=== PATIENT | male | born 1950 | race Caucasian/White ===

== ENCOUNTER 2020-02-07 08:33 | Outpatient (CLI) | payer MEDICARE, SELFPAY ==
[2020-02-07 09:33] LABS: Alanine Aminotransferase 21 U/L (16-63); Albumin Level 3.8 g/dL (3.4-5.0); Alkaline Phosphatase 74 U/L (46-116); Anion Gap 8 mmol/L (8-16); Aspartate Amino Transferase 21 U/L (15-37); Bilirubin,Total 0.6 mg/dL (0.00-1.00); Blood Urea Nitrogen 16 mg/dL (7-18); Calcium 9.7 mg/dL (8.5-10.1); Carbon Dioxide 29 mmol/L (21-32); Chloride 97 mmol/L (98-108); Cholesterol 159 mg/dL (0-200); Estimated Glomerular Filt Rate > 60; Glucose 173 mg/dL (70-99); HDL Direct 65 mg/dL (40-60); LDL Cholesterol Calculated 80 mg/dL (<130); Osmolality Calculated 283 mOsm/kg (285-295); Potassium 4.5 mmol/L (3.5-5.1); Sodium 134 mmol/L (136-145); Total Protein 7.5 g/dL (6.4-8.2); Triglycerides 70 mg/dL (0-150)
== END 2020-02-07 08:34 | disposition home or self-care (01) ==
LOC: CHSLAB 08:38
PROVIDERS: PCP Internal Medicine
DX: E78.5 Hyperlipidemia, unspecified (principal)
CPT/HCPCS: 36415; 80053; 80061

== ENCOUNTER 2020-02-08 12:49 | Emergency (ER) | payer MEDICARE, SELFPAY ==
[2020-02-08 13:15] VITALS: BP 169/91; PULSE 81; RESP 17; O2SAT 99
--- NOTE | 2020-02-08 13:49 | ED.WOUNDLAC ---
HPI - Wound/Laceration General Chief Complaint: Wound/Laceration Stated Complaint: bleeding mouth Time Seen by Provider: 02/08/20 13:50 Source: patient and family Mode of arrival: ambulatory Limitations: no limitations History of Present Illness HPI narrative: Patient comes in with a wound on his tongue. He reportedly had a biopsy done a few days ago. The wound was sutured. Over the last few days these sutures have come out. Bleeding early was mild, now it has stopped. Place: home Associated symptoms: none Related Data Home Medications Medication Instructions Recorded Confirmed aspirin 81 mg tablet,delayed 81 mg PO DAILY 02/02/20 02/08/20 release carvedilol 25 mg tablet 25 mg PO Q12H 02/02/20 02/08/20 clopidogrel 75 mg tablet 75 mg PO DAILY 02/02/20 02/08/20 fluticasone propionate 50 1 spray INTRANASAL DAILY 02/02/20 02/08/20 mcg/actuation nasal spray,suspension glimepiride 1 mg tablet 1 mg PO QAM 02/02/20 02/08/20 hydrochlorothiazide 12.5 mg capsule 12.5 mg PO DAILY 02/02/20 02/08/20 irbesartan 300 mg tablet 300 mg PO DAILY 02/02/20 02/08/20 metformin 500 mg tablet 500 mg PO BID 02/02/20 02/08/20 montelukast 10 mg tablet 10 mg PO DAILY 02/02/20 02/08/20 pantoprazole 40 mg tablet,delayed 40 mg PO QAM 02/02/20 02/08/20 release atorvastatin 20 mg PO DAILY 02/08/20 02/08/20 Allergies Allergy/AdvReac Type Severity Reaction Status Date / Time No Known Allergies Allergy Verified 02/02/20 11:15 Review of Systems Constitutional: Constitutional: Reports no additional constitutional complaints Eyes: Eyes: Reports no additional eye complaints ENT: Reports system reviewed and no additional complaints, except as documented Cardiovascular: Cardiovascular: Reports no additional cardiovascular complaints Respiratory: Respiratory: Reports no additional respiratory complaints Gastrointestinal: Gastrointestinal: Reports no additional gastrointestinal complaints Genitourinary: Genitourinary: Reports no additional male genitourinary complaints Musculoskeletal: Musculoskeletal: Reports no additional musculoskeletal complaints Integumentary/Breasts: Skin/Breast: Reports system reviewed and no additional complaints, except as docu Neurologic: Reports system reviewed and no additional complaints, except as documented Psychiatric: Psychiatric: Reports no additional psychiatric complaints Endocrine: Endocrine: Reports no additional endocrine complaints Hematologic/Lymphatic: Hematologic/Lymphatic: Reports no additional hematologic/lymphatic complaints Allergic/Immunologic: Allergic/Immunologic: Reports no additional allergic/immunologic complaints [facility] Past Medical History Medical History Carotid artery disease Diabetes Sleep apnea Tongue cancer Family History Family History Sibling Family history of obesity Family history of diabetes mellitus in first degree relative Family history of heart disease in male family member before age 55 Father Hypertension Family history of diabetes mellitus in first degree relative Family history of coronary artery disease Acute myocardial infarction Social History Social History Smoking status: Former smoker Second hand tobacco smoke exposure: No Alcohol intake: current Substance use: never Substance use type: does not use Exam Const: General: no acute distress Orientation/consciousness: patient oriented x3 HENMT: Head: normal to inspection Ears: external ears normal General nose exam: Normal external nose present Face and sinus: normal facial exam Teeth and gingiva: abnormal tooth and associated gingiva Other: Wound has stopped bleeding and appears to be healing Eyes: Conjunctivae: conjunctivae normal Neck: Neck: normal visual inspection and no lymphadenopathy Chest: Chest palpation & i
== END 2020-02-08 14:14 | disposition home or self-care (01) ==
PROVIDERS: Emergency Provider Emergency Medicine; PCP Internal Medicine
DX: L98.9 Disorder of the skin and subcutaneous tissue, unspecified (principal)
CPT/HCPCS: 99282

== ENCOUNTER 2020-03-12 14:10 | Outpatient (CLI) | payer MEDICARE, SELFPAY ==
[2020-03-12 14:58] LABS: Alanine Aminotransferase 16 U/L (16-63); Albumin Level 3.6 g/dL (3.4-5.0); Alkaline Phosphatase 71 U/L (46-116); Anion Gap 9 mmol/L (8-16); Aspartate Amino Transferase 14 U/L (15-37); Bilirubin,Total 0.3 mg/dL (0.00-1.00); Blood Urea Nitrogen 16 mg/dL (7-18); Calcium 9.2 mg/dL (8.5-10.1); Carbon Dioxide 28 mmol/L (21-32); Chloride 102 mmol/L (98-108); Estimated Glomerular Filt Rate > 60; Glucose 151 mg/dL (70-99); Osmolality Calculated 292 mOsm/kg (285-295); Potassium 4.4 mmol/L (3.5-5.1); Sodium 139 mmol/L (136-145)
== END 2020-03-12 14:11 | disposition home or self-care (01) ==
LOC: CHSLAB 14:13
PROVIDERS: PCP Internal Medicine
DX: E78.5 Hyperlipidemia, unspecified (principal)
CPT/HCPCS: 36415; 80053

== ENCOUNTER 2020-04-05 08:06 | Outpatient (CLI) | payer MEDICARE, SELFPAY ==
[2020-04-06 14:41] LABS: SARS-CoV-2 RNA PCR Negative
== END 2020-04-05 08:07 | disposition home or self-care (01) ==
LOC: CHSLAB 08:06
PROVIDERS: PCP Internal Medicine; Visit Provider Family Medicine
DX: Z01.818 Encounter for other preprocedural examination (principal); Z20.822 Contact with and (suspected) exposure to COVID-19
CPT/HCPCS: C9803; U0003; U0005

== ENCOUNTER 2020-05-08 08:25 | Outpatient (CLI) | payer MEDICARE, SELFPAY ==
[2020-05-08 09:23] LABS: Cholesterol 110 mg/dL (0-200); HDL Direct 57 mg/dL (40-60); LDL Cholesterol Calculated 38 mg/dL (<130); Triglycerides 75 mg/dL (0-150)
== END 2020-05-08 08:26 | disposition home or self-care (01) ==
LOC: CHSLAB 08:28
PROVIDERS: PCP Internal Medicine
DX: E78.5 Hyperlipidemia, unspecified (principal)
CPT/HCPCS: 36415; 80061

== ENCOUNTER 2020-08-17 15:38 | Outpatient (CLI) | payer MEDICARE, SELFPAY ==
--- NOTE | ~2020-08-17 | XR_ITS ---
XR thoracic spine 2V 08/17/2020 16:04 Indication: Chronic back pain Procedure: 3 views thoracic spine Comparison: No prior studies for comparison. Findings: There is median sternotomy wires limiting evaluation of the thoracic spine on the AP view. There is mild multilevel thoracic spondylosis. Osteopenia. No acute fracture or traumatic malalignmen t. No paraspinal soft tissue abnormality. Surrounding osseous structures are unremarkable. There is a therosclerosis of the aorta. Impression: 1: Mild thoracic spondylosis. Reviewed, dictated and finalized at location A. Impression: 1: Mild thoracic spondylosis.
--- NOTE | ~2020-08-17 | XR_ITS ---
XR lumbar spine 2-3V 08/17/2020 16:04 Indication: Chronic low back pain Procedure: 3 views lumbar spine Comparison: No prior studies for comparison. Findings: There is mild disc narrowing at all lumbar levels. There is mild-moderate lower lumbar face t hypertrophy. No fracture, subluxation or dislocation. No evidence for spondylolisthesis. There is d iffuse atherosclerosis of the aorta. No acute fracture or traumatic malalignment. Impression: 1: Mild-moderate lumbar spondylosis. Reviewed, dictated and finalized at location A. Impression: 1: Mild-moderate lumbar spondylosis.
== END 2020-08-17 15:39 | disposition home or self-care (01) ==
LOC: CHSIMG 15:41
PROVIDERS: PCP Internal Medicine; Visit Provider Internal Medicine
DX: E11.9 Type 2 diabetes mellitus without complications (principal); M54.9 Dorsalgia, unspecified
CPT/HCPCS: 72070; 72100

== ENCOUNTER 2020-08-19 08:11 | Outpatient (CLI) | payer MEDICARE, SELFPAY ==
--- NOTE | ~2020-08-19 | US_ITS ---
EXAMINATION: US aorta EXAM DATE: 08/19/2020 08:29 INDICATION: Atherosclerosis of aorta. TECHNIQUE: Multiple grayscale and Doppler images of the aorta were obtained (by a technologist who pe rformed the scan) and subsequently reviewed. There is no prior study for comparison. FINDINGS: Aorta measures up to 2.4 cm proximally, 2.0 cm mid aspect, 1.8 cm distally. Right and left iliac idalia shari measure 9 and 8 mm respectively. There is scattered arterial sclerosis, but no appreciable steno sis. IMPRESSION: 1. Scattered abdominal aortic arteriosclerosis without aneurysm. Reviewed, dictated and finalized at location B.
== END 2020-08-19 08:12 | disposition home or self-care (01) ==
LOC: CHSIMG 08:13
PROVIDERS: PCP Internal Medicine; Visit Provider Internal Medicine
DX: I70.0 Atherosclerosis of aorta (principal)
CPT/HCPCS: 76775

== ENCOUNTER 2020-09-07 10:17 | Outpatient (CLI) | payer MEDICARE, SELFPAY ==
--- NOTE | ~2020-09-07 | XR_ITS ---
EXAMINATION: XR shoulder LT min 2V INDICATION: Left shoulder pain TECHNIQUE: Four views of the left shoulder are submitted. COMPARISON: None FINDINGS: Normal alignment. No fracture. There is mild osteoarthritis of the glenohumeral and acromio clavicular joints. Soft tissues are unremarkable. Median sternotomy wires and mediastinal surgical cl ips are seen, likely from prior coronary artery bypass grafting. IMPRESSION: 1. Mild osteoarthritis without acute findings. Reviewed, dictated and finalized at location A.
--- NOTE | ~2020-09-07 | XR_ITS ---
EXAMINATION:XR_CERV2-3V_CR DATE: 09/07/2020 11:18 INDICATION: Neck pain TECHNIQUE: AP, lateral, lateral swimmers and odontoid views of the cervical spine are provided. COMPARISON: 07/08/2014 FINDINGS: There are 2 mm of anterolisthesis of C3 on C4. The odontoid is intact. No fracture is ident ified. There is mild loss of intervertebral disc space height at C5-6 and C6-7. Moderate to severe fa cet and uncovertebral joint osteoarthritis is noted at multiple levels. There are surgical clips in t he right neck. Prevertebral soft tissues are normal. Median sternotomy wires and mediastinal surgical clips are seen, likely from prior coronary artery bypass grafting. IMPRESSION: 1. Mild cervical spondylosis without acute findings or significant interval change. Reviewed, dictated and finalized at location A. IMPRESSION: 1. Mild cervical spondylosis without acute findings or significant interval violeta nge.
== END 2020-09-07 10:18 | disposition home or self-care (01) ==
LOC: CHSIMG 10:20
PROVIDERS: PCP Internal Medicine; Visit Provider Internal Medicine
DX: M54.2 Cervicalgia (principal); M25.512 Pain in left shoulder
CPT/HCPCS: 72040; 73030

== ENCOUNTER 2020-09-13 13:59 | Outpatient (RCR) | payer MEDICARE, SELFPAY ==
--- NOTE | 2020-09-13 14:42 | PTOPEVAL ---
Thank you for referring Nahum Saenz to [facility].? The patient is scheduled to be seen for therapy? ___2_x/week for 12 visits. Please review, sign, date and return this plan of care LUCINA. I agree with and certify that the following plan of care is medically necessary. Referring Physician Date Admitting Provider: Attending Provider: Jareth Retana MD Referring Provider: *PT Outpatient Evaluation Start: 09/13/20 14:03 Freq: Status: Active Protocol: Document 09/13/20 14:03 [place] (Rec: 09/13/20 14:41 [place] [id number]) Therapy Assessment Status Assessment Status Assessment Status Evaluation Outpatient Past Medical History Cardiovascular History Hx Chest Pain Yes Hx Coronary Artery Bypass Graft Yes Hx Coronary Artery Disease Yes Hx Hypercholesterolemia Yes Hx Hypertension Yes Gastrointestinal History Hx Gastroesophageal Reflux Disease Yes Endocrine History Hx Diabetes Yes HEENT History Hx Cataracts Yes Evaluation Information Problem Diagnosis neck pain Onset 03/16/20 Subjective Information Pt. reports on/off neck pain Query Text:As Reported By Patient/ developed about 6 months ago. Family He states that the pain has worsened over the past 2 weeks . He describes pain down the neck and into the left upper trap and into the upper left arm. He states that pain is worsened with lifting and sleeping flat can increase pain. He reports he has been sleeping in a recliner chair due to pain. Pt. reports that he is taking a steroid pack and advil which has helped to ease his pain. He states that he did xray that revealed OA in the neck. He reports that his goal for therapy is to decrease his pain to sleep and return to going fishing. Prior Level of Function Activity Level (Last 3 Months) Occupation retired Hand Dominance Right Activity of Daily Living Ability Independent Indoor/Home Mobility Independent Community Mobility Independent Stairs Ability Independent Functional Cognition (Planning, Shopping Independent , Taking Medications) Cooking Yes Cleaning
--- NOTE | 2020-10-19 17:30 | PTOPEVAL ---
Thank you for referring Nahum Saenz to [facility].? The patient is scheduled to be seen for therapy? ____x/week for ___ weeks. Please review, sign, date and return this plan of care LUCINA. I agree with and certify that the following plan of care is medically necessary. Referring Physician Date Admitting Provider: Attending Provider: Jareth Retana MD Referring Provider: *PT Outpatient Evaluation Start: 09/13/20 14:03 Freq: Status: Active Protocol: Document 10/19/20 14:49 ACR (Rec: 10/19/20 15:30 ACR [id number]) Therapy Assessment Status Assessment Status Assessment Status Progress Outpatient Past Medical History Cardiovascular History Hx Chest Pain Yes Hx Coronary Artery Bypass Graft Yes Hx Coronary Artery Disease Yes Hx Hypercholesterolemia Yes Hx Hypertension Yes Gastrointestinal History Hx Gastroesophageal Reflux Disease Yes Endocrine History Hx Diabetes Yes HEENT History Hx Cataracts Yes Evaluation Information Problem Diagnosis neck pain Onset 03/16/20 Subjective Information Patient reports that since Query Text:As Reported By Patient/ beginning therapy his pain has Family improved significantly, but he has some stiffness that still occurs, especially in the morning. Pain Assessment Timing of Pain Assessment Timing of Pain Assessment Assessment Pain Scale Pain Scale Used Numeric (1 - 10) Self Report Pain Assessment Neck Reported Pain Level 0 Greatest Pain Intensity 1 Pain Score Pain Score 0: Self Report Cervical and Lumbar ROM Cervical ROM Cervical Flexion (0-60) 51 Query Text:Active in Degrees Cervical Extension (0-70) 42 Query Text:Active in Degrees Cervical Rotation Right (0-90) 65 Query Text:Active in Degrees Cervical Rotation Left (0-90) 53 Query Text:Active in Degrees Upper Extremity Range of Motion Scapular/ Shoulder Range of Motion Right Shoulder Flexion - Active 121 Left Shoulder Flexion - Active 148 Upper Extremity Muscle Strength Testing Scapular/Shoulder Right Shoulder Flexion Strength 4 Good Shoulder Abduction Strength 3+ Fair + Shoulder Medial Rotation Strength 5 Normal Shoulder Lateral Rotation Strength 4 Good Left Shoulder Flexion Strength 5 Normal Shoulder Abduction Strength 4 Good Shoulder Medial Rotation Strength 5 Normal Shoulder Lateral Rotation Strength 4 Good Elbow/Forearm Bilateral Elbow Flexion Strength 5 Normal Elbow Extension Strength 4+ Good + Muscle Length Testing
--- NOTE | 2020-10-26 16:16 | PTOPEVAL ---
Thank you for referring Nahum Saenz to [facility].? The patient is scheduled to be seen for therapy? ____x/week for ___ weeks. Please review, sign, date and return this plan of care LUCINA. I agree with and certify that the following plan of care is medically necessary. Referring Physician Date Admitting Provider: Attending Provider: Jareth Retana MD Referring Provider: *PT Outpatient Evaluation Start: 09/13/20 14:03 Freq: Status: Active Protocol: Document 10/26/20 16:05 [facility] (Rec: 10/26/20 16:15 [facility] [id number]) Therapy Assessment Status Assessment Status Assessment Status Discharge Outpatient Past Medical History Cardiovascular History Hx Chest Pain Yes Hx Coronary Artery Bypass Graft Yes Hx Coronary Artery Disease Yes Hx Hypercholesterolemia Yes Hx Hypertension Yes Gastrointestinal History Hx Gastroesophageal Reflux Disease Yes Endocrine History Hx Diabetes Yes HEENT History Hx Cataracts Yes Evaluation Information Problem Diagnosis neck pain Onset 03/16/20 Subjective Information Patient reports that since Query Text:As Reported By Patient/ beginning therapy his pain has Family improved significantly. he reports he is feeling great this date. he reports no pain in the neck. Pain Assessment Timing of Pain Assessment Timing of Pain Assessment Assessment Self Report Self Report Pain Level 0 Pain Score Pain Score 0: Self Report Cervical and Lumbar ROM Cervical ROM Cervical Flexion (0-60) 52 Query Text:Active in Degrees Cervical Extension (0-70) 35 Query Text:Active in Degrees Cervical Rotation Right (0-90) 65 Query Text:Active in Degrees Cervical Rotation Left (0-90) 65 Query Text:Active in Degrees Cervical and Lumbar Muscle Testing Cervical Muscle Testing Deep Cervical Flexion 4+/5 deep neck flexor strength Upper Extremity Muscle Strength Testing Scapular/Shoulder Right Shoulder Flexion Strength 4+ Good + Shoulder Abduction Strength 4 Good Shoulder Medial Rotation Strength 5 Normal Shoulder Lateral Rotation Strength 4 Good Left Shoulder Flexion Strength 5 Normal Shoulder Abduction Strength 4 Good Shoulder Medial Rotation Strength 5 Normal Shoulder Lateral Rotation Strength 4 Good General Exercise General Exercises Exercise Description -UBE 10 minutes level 3 (5 fwd Query Text:Record Sets, Reps, and 5 rev) Resistance, and Position -tband blue row, high row, ext , er x30 each bilat -3lb flex and
== END 2020-10-26 16:29 | disposition home or self-care (01) ==
LOC: CHSPT 13:59
PROVIDERS: PCP Internal Medicine; Visit Provider Internal Medicine
DX: M54.2 Cervicalgia (principal)
CPT/HCPCS: 97014; 97110; 97140; 97161; G0283

== ENCOUNTER 2021-05-18 01:10 | Day surgery (SDC) | payer MEDICARE, SELFPAY ==
[2021-05-16 10:55] VITALS: BMI 32.2
[2021-05-18 09:08] VITALS: BP 147/62; PULSE 77; RESP 20; TEMP 36.3; O2SAT 98
[2021-05-18 09:21] LABS: Glucose Point of Care 192 mg/dl (65-105)
--- NOTE | 2021-05-18 09:22 | WPDANESEPPF ---
Anes - Initial Pre Proc Eval Procedure: Operation Date: 05/18/21 10:00 Proposed Procedures p Esophagogastroduodenoscopy & Colonoscopy - Kofi Tyler MD Date/Time: 05/18/21 09:22 Surgeon: Kofi Tyler MD Pre Op Diagnosis: JAREN Patient Data Age: 71 Gender: M Height: 1.78 m Weight: 101.3 kg Last Vital Signs Temp 36.3 C L 05/18/21 09:08 Pulse 77 05/18/21 09:08 Resp 20 05/18/21 09:08 BP 147/62 H 05/18/21 09:08 Pulse Ox 98 05/18/21 09:08 Allergies Allergy/AdvReac Type Severity Reaction Status Date / Time quinapril [From Accupril] Allergy Rash Verified 05/18/21 09:04 Home Medications Medication Instructions Recorded Confirmed Type aspirin 81 mg tablet,delayed 81 mg PO DAILY 02/02/20 05/16/21 History release carvedilol 25 mg tablet 25 mg PO Q12H 02/02/20 05/18/21 History fluticasone propionate 50 1 spray INTRANASAL HS 02/02/20 05/16/21 History mcg/actuation nasal spray,suspension glimepiride 1 mg tablet 1 mg PO BID 02/02/20 05/16/21 History hydrochlorothiazide 12.5 mg capsule 25 mg PO DAILY 02/02/20 05/16/21 History irbesartan 300 mg tablet 300 mg PO DAILY 02/02/20 05/16/21 History metformin 500 mg tablet 1,000 mg PO BID 02/02/20 05/16/21 History montelukast 10 mg tablet 10 mg PO DAILY 02/02/20 05/16/21 History pantoprazole 40 mg tablet,delayed 40 mg PO QAM 02/02/20 05/16/21 History release atorvastatin 20 mg PO DAILY 02/08/20 05/16/21 History potassium chloride 20 meq PO DAILY 05/16/21 05/16/21 History sertraline 100 mg PO DAILY 05/16/21 05/16/21 History Laboratory Tests 05/18/21 09:16 POC Capillary Glucose 192 mg/dl H mg/dl (65-105) Patient hx anesthesia problems: none Family hx anesthesia problems: none Results Review: All pre-operative results and documents have been reviewed as part of the pre-operative evaluation. [facility] Past Medical History Medical History Carotid artery disease Diabetes Sleep apnea Tongue cancer Family History Family History Sibling Family history of obesity Family history of diabetes mellitus in first degree relative Family history of heart disease in male family member before age 55 Father Hypertension Family history of diabetes mellitus in first degree relative Family history of coronary artery disease Acute myocardial infarction Social History Social History Smoking status: Former smoker Tobacco type: cigarettes Second hand tobacco smoke exposure: No Alcohol intake: current Drinks per week: 7 Substance use: never Substance use type: does not use Living arrangements: with family Spiritual care concerns: No Anes - Eval Final PreProcedure Day of Procedure 05/18/21 09:22 Patient weight: obese Heart: regular rate and rhythm Lungs: decreased breath sounds Airway: Mallampati scale class III Neurological: alert and oriented Last oral intake: >/= 8 hours ASA classification: IV Emergent: no Anesthetic plan: proceed Anesthesia type and monitoring: general GIVS and standard monitoring Results Review: All pre-operative results and documents have been reviewed as part of the pre-operative evaluation. Informed Consent: The patient's anesthetic plan and its attendant risks and benefits were discussed with the patient/family/POA. Questions were solicited and answers provided to the satisfaction of the patient/family/POA.
[2021-05-18] MEDS: LACTATED RINGERS 1,000 ML 150 ML IV CONT (09:24)
--- NOTE | 2021-05-18 09:46 | PM.HPGS ---
History of Present Illness History of Present Illness Consent: Risks, benefits, and alternatives have been discussed and questions answered. Patient agrees to proceed with procedure. Chief complaint: JAREN Narrative: aNhum Saenz is a 71 year old male mild mild JAREN, hb 11.6. Denies overt gib, never had EGD. Last colonoscopy 2012. Using baby aspirin. Review of Systems Constitutional: Constitutional: Denies headache(s) and Denies weakness Eyes: Eyes: Denies blurry vision ENT: Reports Normal hearing present, Denies headache(s) and Denies neck pain Cardiovascular: Cardiovascular: Denies chest pain and Denies dyspnea Respiratory: Respiratory: Denies dyspnea Gastrointestinal: Gastrointestinal: Reports no additional gastrointestinal complaints Genitourinary: Genitourinary: Denies dysuria Musculoskeletal: Musculoskeletal: Denies neck pain Integumentary/Breasts: Skin/Breast: Denies dry skin Neurologic: Reports Normal hearing present, Denies headache(s) and Denies weakness Psychiatric: Psychiatric: Denies anxiety Endocrine: Endocrine: Denies change in body appearance Hematologic/Lymphatic: Hematologic/Lymphatic: Denies easy bleeding Allergic/Immunologic: Allergic/Immunologic: Denies urticaria PMFSH Past Medical History Medical History (Updated 05/18/21 @ 09:47 by Kofi Tyler MD) Carotid artery disease Diabetes Iron deficiency anemia Sleep apnea Tongue cancer Family History Family History Sibling Family history of obesity Family history of diabetes mellitus in first degree relative Family history of heart disease in male family member before age 55 Father Hypertension Family history of diabetes mellitus in first degree relative Family history of coronary artery disease Acute myocardial infarction Social History Social History Smoking status: Former smoker Tobacco type: cigarettes Second hand tobacco smoke exposure: No Alcohol intake: current Drinks per week: 7 Substance use: never Substance use type: does not use Living arrangements: with family Spiritual care concerns: No Meds Home Medications and Allergies Home Medications Medication Instructions Recorded Confirmed Type aspirin 81 mg tablet,delayed 81 mg PO DAILY 02/02/20 05/16/21 History release carvedilol 25 mg tablet 25 mg PO Q12H 02/02/20 05/18/21 History fluticasone propionate 50 1 spray INTRANASAL HS 02/02/20 05/16/21 History mcg/actuation nasal spray,suspension glimepiride 1 mg tablet 1 mg PO BID 02/02/20 05/16/21 History hydrochlorothiazide 12.5 mg capsule 25 mg PO DAILY 02/02/20 05/16/21 History irbesartan 300 mg tablet 300 mg PO DAILY 02/02/20 05/16/21 History metformin 500 mg tablet 1,000 mg PO BID 02/02/20 05/16/21 History montelukast 10 mg tablet 10 mg PO DAILY 02/02/20 05/16/21 History pantoprazole 40 mg tablet,delayed 40 mg PO QAM 02/02/20 05/16/21 History release atorvastatin 20 mg PO DAILY 02/08/20 05/16/21 History potassium chloride 20 meq PO DAILY 05/16/21 05/16/21 History sertraline 100 mg PO DAILY 05/16/21 05/16/21 History Allergies Allergy/AdvReac Type Severity Reaction Status Date / Time quinapril [From Accupril] Allergy Rash Verified 05/18/21 09:04 Vital Signs Vital Signs - 24 hr 05/18/21 09:08 Temperature 97.3 F L Pulse Rate 77 Respiratory Rate 20 Blood Pressure 147/62 H Pulse Oximetry 98 Exam Const: General: comfortable and no acute distress HENMT: General nose exam: Normal nares present Eyes: General: appearance normal, both eyes and all related structures Neck: Neck: no JVD Resp: Auscultation: clear to auscultation bilaterally Cardio: Rate: regular rate Rhythm: regular rhythm GI: Inspection: non-distended GI Palp: Yes Soft to palpation Skin: General skin exam: normal color Neuro: General: gait normal Speech:
--- NOTE | 2021-05-18 10:42 | SUR.OPER ---
EGD started at 0954 and ended at 0958. Colonoscopy started at 1003 and ended at 1039.
[2021-05-18 10:44] VITALS: BP 155/58; PULSE 68; RESP 24; O2SAT 100
[2021-05-18 10:54] VITALS: BP 139/52; PULSE 72; RESP 17; O2SAT 98
[2021-05-18 11:04] VITALS: BP 157/68; PULSE 74; RESP 19; O2SAT 98
== END 2021-05-18 11:20 | disposition home or self-care (01) ==
PROVIDERS: PCP Internal Medicine; Visit Provider Internal Medicine Gastroenterology
PROC: 0DJ08ZZ Inspection of Upper Intestinal Tract, Via Natural or Artificial Opening Endoscopic (ICD-10-PCS; CPT 43235; principal; 2021-05-18 10:00)
DX: D50.9 Iron deficiency anemia, unspecified (principal); D12.2 Benign neoplasm of ascending colon; D12.0 Benign neoplasm of cecum; K63.5 Polyp of colon; K29.70 Gastritis, unspecified, without bleeding; K57.30 Diverticulosis of large intestine without perforation or abscess without bleeding; I77.9 Disorder of arteries and arterioles, unspecified; E11.9 Type 2 diabetes mellitus without complications; G47.30 Sleep apnea, unspecified; Z85.810 Personal history of malignant neoplasm of tongue; Z87.891 Personal history of nicotine dependence
CPT/HCPCS: 45385; 45381; 43239; 82948; 88305; J2704; J7120

== ENCOUNTER 2021-12-30 14:26 | Outpatient (CLI) | payer MEDICARE, SELFPAY ==
--- NOTE | 2021-12-30 15:18 | ECHO_ITS ---
Patient Info Name: Nahum Saenz Age: 71 years : 1950 Gender: Male Ht: 70 in Wt: 230 lbs BSA: 2.30 m2 HR: 65 bpm BP: 178 / 78 mmHg Technical Quality: Fair Exam Date: 12/30/2021 3:29 PM Exam Location: [facility] Patient Status: Outpatient Admit Date: 12/30/2021 Staff Ordering Physician: Shane Brito Associate Dean Of Women: Pranav Resendiz RDCS, RT Attending Provider: Shane Brito Referring Physician: Alisha FREEMNA; Exam Type: CA echo doppler color flow Study Info Indications R55 - Syncope and collapse Complete two-dimensional, color flow and Doppler transthoracic echocardiogram is performed. Strain analysis performed. Summary 1. Complete two-dimensional, color flow and Doppler transthoracic echocardiogram is performed. 2. Left ventricular chamber dimension is mildly enlarged. 3. Left ventricular systolic function is normal, estimated at 60-65%. 4. There is mildly increased left ventricular wall thickness. 5. The left ventricular diastolic function is normal. 6. E/e' 8 is minimally elevated. 7. Global longitudinal strain is abnormal at -13.1%. 8. There is mild aortic valve sclerosis. 9. There is trace tricuspid valve regurgitation. Left Ventricle E/e' 8 is minimally elevated. Global longitudinal strain is abnormal at -13.1%. Left ventricular chamber dimension is mildly enlarged. Left ventricular systolic function is normal, estimated at 60-65%. There is mildly increased left ventricular wall thickness. The left ventricular diastolic function is normal. Right Ventricle Right ventricular systolic function is normal and with normal TAPSE 2.1 cm. Right ventricular chamber dimension is normal. Left Atria Left atrial chamber dimension is normal. Right Atria Right atrial chamber dimension is normal. Aortic Valve The aortic valve is trileaflet. There is mild aortic valve sclerosis. There is no aortic valve stenosis. There is no aortic valve regurgitation. Pulmonic Valve There is no pulmonic regurgitation. Mitral Valve There is no mitral valve stenosis. There is no mitral valve regurgitation. Tricuspid Valve RVSP is not calculated due to an inadequate TR jet. There is trace tricuspid valve regurgitation. Pericardium/Pleural There is no pericardial effusion. Inferior Vena Cava Normal inferior vena cava with >50% collapse upon inspiration consistent with normal right atrial pressure, 5 mmHg. Aorta The aortic root size at the sinus of Valsalva is normal. Left Ventricular Outflow Tract Name Value Normal LVOT 2D LVOT Diameter 2.0 cm LVOT Doppler LVOT Peak Velocity 78 cm/s LVOT Peak Gradient 1 mmHg LVOT Mean Gradient 1 mmHg LVOT VTI 17 cm LVOT VTI/AV VTI Ratio 0.6 LVOT Stroke Volume 51 ml Mitral Valve Name Value Normal
== END 2021-12-30 14:27 | disposition home or self-care (01) ==
LOC: CHSIMG 14:28
PROVIDERS: PCP Internal Medicine
DX: R55 Syncope and collapse (principal)
CPT/HCPCS: 93306

== ENCOUNTER 2022-08-23 01:02 | Day surgery (SDC) | payer MEDICARE, SELFPAY ==
[2022-07-27 09:20] VITALS: BMI 30.2
[2022-08-09 13:46] VITALS: BMI 30.4
--- NOTE | 2022-08-09 13:53 | PC.NURSE ---
Spoke with spouse, health history and medications are unchanged since interview on 07/27/2022
[2022-08-23 07:46] VITALS: BP 194/75; PULSE 80; RESP 18; TEMP 36.1; O2SAT 99
[2022-08-23] MEDS: LACTATED RINGERS 1,000 ML 150 ML IV CONT (07:56)
[2022-08-23 07:57] LABS: Glucose Point of Care 134 mg/dl (65-105)
--- NOTE | 2022-08-23 08:24 | WPDANESEPPF ---
Anes - Initial Pre Proc Eval Procedure: Operation Date: 08/23/22 09:00 Proposed Procedures p Colonoscopy - Kofi Tyler MD Date/Time: 08/23/22 08:24 Surgeon: Kofi Tyler MD Pre Op Diagnosis: hx of colon polyps Patient Data Age: 72 Gender: M Height: 1.75 m Weight: 90.5 kg Last Vital Signs Temp 97 F L 08/23/22 07:46 Pulse 80 08/23/22 07:46 Resp 18 08/23/22 07:46 BP 194/75 H 08/23/22 07:46 Pulse Ox 99 08/23/22 07:46 O2 Del Method Room Air 08/23/22 07:46 Allergies Allergy/AdvReac Type Severity Reaction Status Date / Time quinapril [From Accupril] Allergy Rash Verified 08/23/22 07:45 Home Medications Medication Instructions Recorded Confirmed Type aspirin 81 mg tablet,delayed 81 mg PO DAILY 02/02/20 07/27/22 History release (Adult Aspirin Regimen) carvedilol 25 mg tablet 25 mg PO Q12H 02/02/20 07/27/22 History fluticasone propionate 50 1 spray intranasal HS 02/02/20 07/27/22 History mcg/actuation nasal spray,suspension (Flonase Allergy Relief) glimepiride 1 mg tablet 1 mg PO BID 02/02/20 07/27/22 History hydrochlorothiazide 12.5 mg capsule 25 mg PO DAILY 02/02/20 07/27/22 History irbesartan 300 mg tablet 300 mg PO DAILY 02/02/20 07/27/22 History metformin 500 mg tablet 1,000 mg PO BID 02/02/20 07/27/22 History montelukast 10 mg tablet 10 mg PO DAILY 02/02/20 07/27/22 History pantoprazole 40 mg tablet,delayed 40 mg PO QAM 02/02/20 07/27/22 History release atorvastatin 20 mg tablet 20 mg PO DAILY 02/08/20 07/27/22 History potassium chloride 20 mEq 20 meq PO DAILY 05/16/21 07/27/22 History tablet,extended release(part/cryst) sertraline 100 mg tablet 100 mg PO DAILY 05/16/21 07/27/22 History ferrous gluconate 324 mg (38 mg 324 mg PO BID 07/27/22 07/27/22 History iron) tablet Laboratory Tests 08/23/22 07:54 POC Capillary Glucose 134 H mg/dl (65-105) Patient hx anesthesia problems: none Family hx anesthesia problems: none Results Review: All pre-operative results and documents have been reviewed as part of the pre-operative evaluation. [facility] Past Medical History Medical History (Updated 05/18/21 @ 09:47 by Kofi Tyler MD) Carotid artery disease Diabetes Iron deficiency anemia Sleep apnea Tongue cancer Family History Family History Sibling Family history of obesity Family history of diabetes mellitus in first degree relative Family history of heart disease in male family member before age 55 Father Hypertension Family history of diabetes mellitus in first degree relative Family history of coronary artery disease Acute myocardial infarction Social History Social History Smoking packs per day: 1.5 Smoking cigarettes per day: 30.0 Smoking status: Former smoker Tobacco type: cigarettes Second hand tobacco smoke exposure: No Alcohol intake: current Drinks per week: 3 Substance use: never Substance use type: does not use Living arrangements: with family Spiritual care concerns: No Anes - Eval Final PreProcedure Day of Procedure 08/23/22 08:24 Patient weight: normal Heart: regular rate and rhythm Lungs: clear to auscultation Airway: Mallampati scale class II Neurological: alert and oriented Last oral intake: >/= 8 hours ASA classification: III Emergent: no Anesthetic plan: proceed Anesthesia type and monitoring: general GIVS and standard monitoring Results Review: All pre-operative results and documents have been reviewed as part of the pre-operative evaluation. Informed Consent: The patient's anesthetic plan and its attendant risks and benefits were discussed with the patient/family/POA. Questions were solicited and answers provided to the satisfaction of the patient/family/POA.
--- NOTE | 2022-08-23 08:39 | PM.HPGS ---
History of Present Illness History of Present Illness Consent: Risks, benefits, and alternatives have been discussed and questions answered. Patient agrees to proceed with procedure. Chief complaint: hx of colon polyps Narrative: Nahum Saenz is a 72 year old male with large TA polyp removed 05/2021 Review of Systems Constitutional: Constitutional: Denies headache(s) and Denies weakness Eyes: Eyes: Denies blurry vision ENT: Reports Normal hearing present, Denies headache(s) and Denies neck pain Cardiovascular: Cardiovascular: Denies chest pain and Denies dyspnea Respiratory: Respiratory: Denies dyspnea Gastrointestinal: Gastrointestinal: Reports no additional gastrointestinal complaints Genitourinary: Genitourinary: Denies dysuria Musculoskeletal: Musculoskeletal: Denies neck pain Integumentary/Breasts: Skin/Breast: Denies dry skin Neurologic: Reports Normal hearing present, Denies headache(s) and Denies weakness Psychiatric: Psychiatric: Denies anxiety Endocrine: Endocrine: Denies change in body appearance Hematologic/Lymphatic: Hematologic/Lymphatic: Denies easy bleeding Allergic/Immunologic: Allergic/Immunologic: Denies urticaria PMFSH Past Medical History Medical History (Updated 08/23/22 @ 08:39 by Kofi Tyler MD) Adenomatous colon polyp Carotid artery disease Diabetes Iron deficiency anemia Sleep apnea Tongue cancer Family History Family History Sibling Family history of obesity Family history of diabetes mellitus in first degree relative Family history of heart disease in male family member before age 55 Father Hypertension Family history of diabetes mellitus in first degree relative Family history of coronary artery disease Acute myocardial infarction Social History Social History Smoking packs per day: 1.5 Smoking cigarettes per day: 30.0 Smoking status: Former smoker Tobacco type: cigarettes Second hand tobacco smoke exposure: No Alcohol intake: current Drinks per week: 3 Substance use: never Substance use type: does not use Living arrangements: with family Spiritual care concerns: No Meds Home Medications and Allergies Home Medications Medication Instructions Recorded Confirmed Type aspirin 81 mg tablet,delayed 81 mg PO DAILY 02/02/20 07/27/22 History release (Adult Aspirin Regimen) carvedilol 25 mg tablet 25 mg PO Q12H 02/02/20 07/27/22 History fluticasone propionate 50 1 spray intranasal HS 02/02/20 07/27/22 History mcg/actuation nasal spray,suspension (Flonase Allergy Relief) glimepiride 1 mg tablet 1 mg PO BID 02/02/20 07/27/22 History hydrochlorothiazide 12.5 mg capsule 25 mg PO DAILY 02/02/20 07/27/22 History irbesartan 300 mg tablet 300 mg PO DAILY 02/02/20 07/27/22 History metformin 500 mg tablet 1,000 mg PO BID 02/02/20 07/27/22 History montelukast 10 mg tablet 10 mg PO DAILY 02/02/20 07/27/22 History pantoprazole 40 mg tablet,delayed 40 mg PO QAM 02/02/20 07/27/22 History release atorvastatin 20 mg tablet 20 mg PO DAILY 02/08/20 07/27/22 History potassium chloride 20 mEq 20 meq PO DAILY 05/16/21 07/27/22 History tablet,extended release(part/cryst) sertraline 100 mg tablet 100 mg PO DAILY 05/16/21 07/27/22 History ferrous gluconate 324 mg (38 mg 324 mg PO BID 07/27/22 07/27/22 History iron) tablet Allergies Allergy/AdvReac Type Severity Reaction Status Date / Time quinapril [From Accupril] Allergy Rash Verified 08/23/22 07:45 Vital Signs Vital Signs - 24 hr 08/23/22 07:46 Temperature 97 F L Pulse Rate 80 Respiratory Rate 18 Blood Pressure 194/75 H Pulse Oximetry 99 Oxygen Delivery Room Air Exam Const: General: comfortable and no acute distress HENMT: Face/Nose/Sinus: Normal nares present Eyes: General: appearance normal, both eyes and all related s
[2022-08-23 09:19] VITALS: BP 180/71; PULSE 72; RESP 23; O2SAT 93
[2022-08-23 09:29] VITALS: BP 165/68; PULSE 72; RESP 20; O2SAT 98
[2022-08-23 09:39] VITALS: BP 159/60; PULSE 74; RESP 22; O2SAT 99
--- NOTE | 2022-08-23 10:00 | SUR.PHASEII ---
Discharge delayed due to ride issues
== END 2022-08-23 10:00 | disposition home or self-care (01) ==
PROVIDERS: PCP Internal Medicine; Visit Provider Internal Medicine Gastroenterology
PROC: 0DJD8ZZ Inspection of Lower Intestinal Tract, Via Natural or Artificial Opening Endoscopic (ICD-10-PCS; CPT 45378; principal; 2022-08-23 09:00)
DX: Z12.11 Encounter for screening for malignant neoplasm of colon (principal); D12.0 Benign neoplasm of cecum; D12.4 Benign neoplasm of descending colon; D12.3 Benign neoplasm of transverse colon; K64.8 Other hemorrhoids; I25.10 Atherosclerotic heart disease of native coronary artery without angina pectoris; E11.9 Type 2 diabetes mellitus without complications; D50.9 Iron deficiency anemia, unspecified; G47.30 Sleep apnea, unspecified; Z85.810 Personal history of malignant neoplasm of tongue; Z79.82 Long term (current) use of aspirin; Z79.84 Long term (current) use of oral hypoglycemic drugs; Z87.891 Personal history of nicotine dependence
CPT/HCPCS: 45385; 82948; 88305; J2704; J7120

== ENCOUNTER 2023-11-30 15:18 | Outpatient (CLI) | payer MEDICARE, SELFPAY ==
[2023-11-30 15:59] LABS: Hemoglobin 13.7 g/dL (12.4-15.3); Mean Corpuscular HGB Conc 33.4 g/dL (32-36); Mean Corpuscular Hemoglobin 23.5 pg (27.0-31.0); Mean Corpuscular Volume 70.3 fL (78.0-102.0); Platelet Count Result 204 K/mm3 (150-420); Red Blood Count 5.83 M/mm3 (4.70-6.10); Red Cell Distribution Width 16.9 % (11.6-14.4); White Blood Count 8.2 K/mm3 (4.8-10.8)
[2023-11-30 16:34] LABS: Band Neutrophils Percent 1 % (0-6); Eosinophils Absolute Manual 0.08 K/mm3 (0.02-0.50); Eosinophils Percent Manual 1 % (1-6); Lymphocytes Absolute Manual 0.73 K/mm3 (1.1-4.5); Lymphocytes Percent Manual 9 % (18-44); Monocytes Absolute Manual 1.47 K/mm3 (0.1-0.90); Monocytes Percent Manual 18 % (3-9); Neutrophils Percent Manual 71 % (46-73); Platelet Estimate Adequate (Adequate); Total Cells Counted 100
[2023-11-30 17:01] LABS: Alanine Aminotransferase 29 U/L (16-63); Albumin Level 3.4 g/dL (3.4-5.0); Alkaline Phosphatase 83 U/L (46-116); Anion Gap 15 mmol/L (4-12); Aspartate Amino Transferase 29 U/L (15-37); Bilirubin,Total 0.8 mg/dL (0.00-1.00); Blood Urea Nitrogen 30 mg/dL (7-18); CRP 6.1 mg/dL (0.0-0.9); Carbon Dioxide 22 mmol/L (21-32); Chloride 88 mmol/L (98-108); Estimated Glomerular Filt Rate 37; Glucose 106 mg/dL (70-99); Osmolality Calculated 266 mOsm/kg (285-295); Potassium 3.4 mmol/L (3.5-5.1); Sodium 125 mmol/L (136-145); Total Protein 7.4 g/dL (6.4-8.2)
== END 2023-11-30 15:19 | disposition home or self-care (01) ==
PROVIDERS: PCP Internal Medicine; Visit Provider Internal Medicine
DX: R19.7 Diarrhea, unspecified (principal); E86.0 Dehydration; E87.1 Hypo-osmolality and hyponatremia; R79.89 Other specified abnormal findings of blood chemistry
CPT/HCPCS: 36415; 80053; 85025; 86140

== ENCOUNTER 2023-12-01 09:22 | Observation (INO) | payer MEDICARE, SELFPAY ==
[2023-12-01] VITALS (16 sets, daily range): BP systolic 95–170; BP diastolic 55–79; PULSE 67–90; RESP 17–18; TEMP 36–36.2; O2SAT 93–99; BMI 31.7
[2023-12-01 10:01] LABS: Hematocrit 39.9 % (37.0-46.0); Hemoglobin 13.6 g/dL (12.4-15.3); Immature Platelet Fraction Pct 11.4 % (1.0-7.0); Mean Corpuscular HGB Conc 34.1 g/dL (32-36); Mean Corpuscular Hemoglobin 23.8 pg (27.0-31.0); Mean Corpuscular Volume 69.9 fL (78.0-102.0); Mean Platelet Volume 11.7 fl (8.7-11.0); Platelet Count Result 163 K/mm3 (150-420); Red Blood Count 5.71 M/mm3 (4.70-6.10); Red Cell Distribution Width 16.6 % (11.6-14.4); White Blood Count 7.7 K/mm3 (4.8-10.8)
[2023-12-01 10:16] LABS: Alanine Aminotransferase 29 U/L (16-63); Alkaline Phosphatase 76 U/L (46-116); Anion Gap 12 mmol/L (4-12); Aspartate Amino Transferase 53 U/L (15-37); Bilirubin,Total 0.9 mg/dL (0.00-1.00); Blood Urea Nitrogen 29 mg/dL (7-18); Carbon Dioxide 24 mmol/L (21-32); Chloride 90 mmol/L (98-108); Estimated CRCL calculation 46 ml/min; Estimated Glomerular Filt Rate 46; Glucose 86 mg/dL (70-99); Osmolality Calculated 266 mOsm/kg (285-295); Potassium 4.5 mmol/L (3.5-5.1); Sodium 126 mmol/L (136-145); Total Protein 7.6 g/dL (6.4-8.2)
[2023-12-01] MEDS: SODIUM CHLORIDE 0.9% IV 1,000 ML 999 ML IV CONT (10:42)
--- NOTE | 2023-12-01 11:09 | ED.GENADULT ---
HPI - General Adult General Chief complaint: Recheck/Abnormal Lab/Rx Stated complaint: abnormal labs History of Present Illness HPI narrative: Patient presents after being called by his primary care and advised to go to the emergency department due to some abnormal laboratory values. Patient with a 1 week history of diarrhea. He also endorses faint cough and some sinus headache. He states that he has been having diarrhea 3 to 4 times a day. He was started on Imodium approximately 2 days ago and the diarrhea has improved some. He has not had any recent course of antibiotics. No other sick contacts. Denies fever, chills, rigors, nausea, vomiting, diarrhea.? Denies chest pain or shortness of breath. past medical history includes diabetes, hypertension, triple vessel CABG Related Data Home Medications Medication Instructions Recorded Confirmed aspirin 81 mg tablet,delayed 81 mg PO DAILY 02/02/20 07/27/22 release (Adult Aspirin Regimen) carvedilol 25 mg tablet 25 mg PO Q12H 02/02/20 07/27/22 fluticasone propionate 50 1 spray intranasal HS 02/02/20 07/27/22 mcg/actuation nasal spray,suspension (Flonase Allergy Relief) glimepiride 1 mg tablet 1 mg PO BID 02/02/20 07/27/22 hydrochlorothiazide 12.5 mg capsule 25 mg PO DAILY 02/02/20 07/27/22 irbesartan 300 mg tablet 300 mg PO DAILY 02/02/20 07/27/22 metformin 500 mg tablet 1,000 mg PO BID 02/02/20 07/27/22 montelukast 10 mg tablet 10 mg PO DAILY 02/02/20 07/27/22 pantoprazole 40 mg tablet,delayed 40 mg PO QAM 02/02/20 07/27/22 release atorvastatin 20 mg tablet 20 mg PO DAILY 02/08/20 07/27/22 potassium chloride 20 mEq 20 meq PO DAILY 05/16/21 07/27/22 tablet,extended release(part/cryst) sertraline 100 mg tablet 100 mg PO DAILY 05/16/21 07/27/22 ferrous gluconate 324 mg (38 mg 324 mg PO BID 07/27/22 07/27/22 iron) tablet Allergies Allergy/AdvReac Type Severity Reaction Status Date / Time quinapril [From Accupril] Allergy Rash Verified 08/23/22 07:45 PMFSH Past Medical History Medical History (Updated 12/01/23 @ 12:14 by Jonah Cabral MD) Adenomatous colon polyp Carotid artery disease Diabetes Iron deficiency anemia Sleep apnea Tongue cancer Family History Family History Sibling Family history of obesity Family history of diabetes mellitus in first degree relative Family history of heart disease in male family member before age 55 Father Hypertension Family history of diabetes mellitus in first degree relative Family history of coronary artery disease Acute myocardial infarction Social History Social History Smoking packs per day: 1.5 Smoking cigarettes per day: 30.0 Smoking status: Former smoker Tobacco type: cigarettes Second hand tobacco smoke exposure: No Alcohol intake: current Drinks per week: 3 Substance use: never Substance use type: does not use Living arrangements: with family Spiritual care concerns: No Exam Narrative: GEN: Awake, alert, and appropriate to situation. Mildly ill appearing, well nourished, nontoxic, NAD. HEENT: No rhinorrhea noted, mucous membranes moist. No scleral icterus or conjunctival injection. CV: Normal rate, regular rhythm, S1S2 no M/G/R. No peripheral edema noted. PULM: Non-labored respiration. Clear to auscultation bilaterally. No wheezes, rales, rhonchi. GI: Abdomen soft, non -tender to palpation. No rigidity, distention or guarding.? NEURO: Normal speech. No lateralizing or focal deficits noted. Course Course Emergency Course: Patient administered a 1 L fluid bolus. Reassess lung sounds at approximately 11:45 a.m.. Lung sounds remain clear. Vital Signs Vital signs: Vital Signs Temperature 36.0 C L 12/01/23 09:23 Pulse Rate 73 12/01/23 09:23 Respiratory Rate 18 12/01/23 09:23 Blood Pressure 170/67 H 12/01/23 09:23
[2023-12-01 12:16] LABS: Add Urine Microscopic? NO; Appearance Urine Clear (Clear); Bilirubin Urine Negative (Negative); Blood Urine Negative (Negative); Color Urine Light Yellow (Yellow); Glucose Urine UA Trace (Negative); Ketones Urine Negative (Negative); Leukocyte Esterase Ur Negative LEU/UL (Negative); Nitrate Urine Negative (Negative); Protein Urine Negative (Negative); Specific Grav Ur <= 1.005 (1.010-1.020); Urobilinogen Urine 0.2 mg/dL (0.2-1.0); pH Urine 5.5 (5.0-8.0)
--- NOTE | 2023-12-01 12:29 | ADMGEN ---
This patient, Nahum Saenz, was admitted to 2nd Floor Room 202-1. Patient/family oriented to hospital policies and general routines including ID bracelet, bed and alarms, visiting hours, pain management, procedures, bathroom and other care routines, personal items, smoking policy, room service/diet, and visiting hours. Information on how to activate the Rapid Response Team has been discussed. Patient/Family are encouraged to report perceived risks to care and to ask questions if they do not understand what they are told or what they should do.
[2023-12-01] MEDS: SODIUM CHLORIDE 0.9% IV 1,000 ML 75 ML IV CONT (13:21)
[2023-12-01 13:40] LABS: SARS-CoV-2 RNA PCR Negative (Negative)
[2023-12-01 13:41] LABS: Influenza A QL RT-PCR Negative (Negative); Influenza B QL RT-PCR Negative (Negative); RSV RNA, RT-PCR Negative (Negative)
[2023-12-01 17:01] LABS: Glucose Point of Care 117 mg/dl (65-105)
--- NOTE | 2023-12-01 17:03 | PC.NURSE ---
Patient has Tresiba from home which he takes 45units at supper, self administered per patient request. Lantus non-administered d/t duplicate type of order.
[2023-12-01] MEDS: carvediloL 12.5 MG TABLET 25 MG PO (21:11)
[2023-12-01 21:15] LABS: Glucose Point of Care 102 mg/dl (65-105)
[2023-12-02] VITALS: BP 126/66; PULSE 90; RESP 18; TEMP 36.6; O2SAT 96
[2023-12-02] MEDS: SODIUM CHLORIDE 0.9% IV 1,000 ML 75 ML IV CONT (03:03)
[2023-12-02 07:10] LABS: Glucose Point of Care 82 mg/dl (65-105)
[2023-12-02 08:00] VITALS: BP 144/61; PULSE 66; PULSE 87; RESP 18; TEMP 36.2; O2SAT 96; O2SAT 99
[2023-12-02 08:07] LABS: Alanine Aminotransferase 20 U/L (16-63); Albumin Level 2.8 g/dL (3.4-5.0); Alkaline Phosphatase 73 U/L (46-116); Anion Gap 11 mmol/L (4-12); Aspartate Amino Transferase 22 U/L (15-37); Bilirubin,Total 0.6 mg/dL (0.00-1.00); Blood Urea Nitrogen 23 mg/dL (7-18); Carbon Dioxide 21 mmol/L (21-32); Chloride 99 mmol/L (98-108); Glucose 82 mg/dL (70-99); Osmolality Calculated 274 mOsm/kg (285-295); Potassium 3.9 mmol/L (3.5-5.1); Sodium 131 mmol/L (136-145); Total Protein 6.2 g/dL (6.4-8.2)
[2023-12-02 08:15] LABS: Estimated CRCL calculation 59 ml/min; Estimated Glomerular Filt Rate > 60
[2023-12-02 08:19] LABS: Calcium 8.3 mg/dL (8.5-10.1)
[2023-12-02] MEDS: ASPIRIN 81 MG ENTERIC TABLET PO (08:22)
[2023-12-02] MEDS: PANTOPRAZOLE 40 MG TABLET PO (08:22)
[2023-12-02] MEDS: LORATADINE 10 MG TABLET PO (08:22)
[2023-12-02] MEDS: MONTELUKAST SODIUM 10 MG TABLET PO (08:22)
[2023-12-02] MEDS: IRBESARTAN 150 MG TABLET 300 MG PO (08:22)
[2023-12-02] MEDS: LOPERAMIDE HCL 2 MG CAPSULE PO (08:22)
[2023-12-02] MEDS: SERTRALINE HCL 50 MG TABLET 100 MG PO (08:22)
[2023-12-02 08:23] VITALS: PULSE 87
[2023-12-02] MEDS: carvediloL 12.5 MG TABLET 25 MG PO (08:23)
--- NOTE | 2023-12-02 10:14 | PM.SD2 ---
Same Day Admit/Disch: HPI History of Present Illness Chief complaint: abnormal labs Narrative: Nahum Saenz is a 73 year old male with a past medical history significant for diabetes, hypertension, CAD and CABG who presented to the emergency room under direction of his primary care provider for abnormal labs and a 9 day history of diarrhea. The patient provides the following history. over the last couple of weeks he has been having frequent loose stools accompanied by sinus congestion, nonproductive cough, and subjective chills. He has had a poor appetite and has not been eating and drinking well. He denies any recent sick contacts. He has not been on antibiotics recently and is not immunosuppressed. He lives at home with his and she has been in her usual state of health. [facility] Past Medical History Medical History Adenomatous colon polyp Carotid artery disease Diabetes Injury of elbow, left Iron deficiency anemia Sleep apnea Tongue cancer Surgical History Surgical History (Updated 12/02/23 @ 10:22 by Tricia Abreu APRN) H/O carotid endarterectomy Hx of CABG Family History Family History Sibling Family history of obesity Family history of diabetes mellitus in first degree relative Family history of heart disease in male family member before age 55 Father Hypertension Family history of diabetes mellitus in first degree relative Family history of coronary artery disease Acute myocardial infarction Social History Social History Smoking packs per day: 1.5 Smoking cigarettes per day: 30.0 Years smoked: 30 Smoking pack-years: 45.00 Smoking status: Former smoker Tobacco type: cigarettes Second hand tobacco smoke exposure: No Alcohol intake: former Drinks per week: 3 Substance use: never Substance use type: does not use Do You Feel Safe in your Home?: Yes Lack of Transportation: No Lack of Food: Never True Current Housing: I Have Housing Concerned About Future Housing: No Difficulty Paying Gas/Electric Bills: No Difficulty Paying for Meds: No Currently Unemployed: No Education: Trade/Vocational Certificate Difficulty w/ Childcare or Family Care: No Living arrangements: with family Spiritual care concerns: No Same Day Admit/Disch: Med Pre-admit Medications Home Medications Medication Instructions Recorded Confirmed Type aspirin 81 mg tablet,delayed 81 mg PO DAILY 02/02/20 12/01/23 History release (Adult Aspirin Regimen) carvedilol 25 mg tablet 25 mg PO Q12H 02/02/20 12/01/23 History hydrochlorothiazide 12.5 mg capsule 25 mg PO DAILY 02/02/20 12/01/23 History irbesartan 300 mg tablet 300 mg PO DAILY 02/02/20 12/01/23 History montelukast 10 mg tablet 10 mg PO DAILY 02/02/20 12/01/23 History pantoprazole 40 mg tablet,delayed 40 mg PO QAM 02/02/20 12/01/23 History release potassium chloride 20 mEq 20 meq PO DAILY 05/16/21 12/01/23 History tablet,extended release(part/cryst) sertraline 100 mg tablet (Zoloft) 100 mg PO DAILY 05/16/21 12/01/23 History cetirizine 10 mg tablet (Zyrtec) 10 mg PO DAILY 12/01/23 12/01/23 History insulin degludec 100 unit/mL (3 45 unit subcut DAILY@1700 12/01/23 12/01/23 History mL) subcutaneous pen (Tresiba FlexTouch U-100 insulin) sitagliptin phosphate 100 mg 100 mg PO DAILY 12/01/23 12/01/23 History tablet (Januvia) Review of Systems Review of Systems All systems reviewed & are unremarkable except as noted in HPI and below Exam Narrative: General: appears comfortable, in no acute distress, appears euvolemic Respiratory: breathing is unlabored with even chest rise/fall, lungs are clear without wheezing, rhonchi, and crackles Cardiovascular: Rate and rhythm regular, normal s1s2, no murmur Abdomen: Soft, round, non-tender, active bowel
[2023-12-02 10:48] LABS: Glucose Point of Care 120 mg/dl (65-105)
[2023-12-02 10:51] LABS: Hemoglobin A1C 6.2 % (<5.7)
--- NOTE | 2023-12-02 11:15 | PC.NURSE ---
, Teressa, here, went over discharge instructions with her, states understanding.
--- NOTE | 2023-12-02 11:16 | PC.NURSE ---
Discharge instructions given to patient, states understanding of instructions. Awaiting to order picker/assembler, IV site to RFA discontinued, catheter removed intact.
--- NOTE | 2023-12-03 09:02 | PC.NURSE ---
Discharge call back complete, doing well, feeling better, no questions regarding dc instructions
== END 2023-12-02 11:50 | disposition home or self-care (01) ==
LOC: CHSED 10:14 → CHS2ND 12:08
PROVIDERS: Nurse Practitioner Acute Care; Admitting Provider Internal Medicine; Emergency Provider Family Medicine; PCP Internal Medicine; Visit Provider Internal Medicine
DX: N17.9 Acute kidney failure, unspecified (principal); E86.0 Dehydration; E87.1 Hypo-osmolality and hyponatremia; Z20.822 Contact with and (suspected) exposure to COVID-19; E11.9 Type 2 diabetes mellitus without complications; I25.10 Atherosclerotic heart disease of native coronary artery without angina pectoris; I10 Essential (primary) hypertension; D50.9 Iron deficiency anemia, unspecified; G47.30 Sleep apnea, unspecified; Z85.810 Personal history of malignant neoplasm of tongue; Z79.82 Long term (current) use of aspirin; Z79.84 Long term (current) use of oral hypoglycemic drugs; Z79.899 Other long term (current) drug therapy; Z87.891 Personal history of nicotine dependence; Z95.1 Presence of aortocoronary bypass graft; Z86.0100 Personal history of colon polyps, unspecified
CPT/HCPCS: 36415; 80053; 81003; 82948; 83036; 85027; 85055; 87637; 96360; 96361; 99285; A9270; G0378; J7030

== ENCOUNTER 2023-12-05 11:46 | Outpatient (CLI) | payer MEDICARE, SELFPAY ==
[2023-12-05 12:42] LABS: Anion Gap 9 mmol/L (4-12); Blood Urea Nitrogen 12 mg/dL (7-18); Calcium 8.3 mg/dL (8.5-10.1); Carbon Dioxide 29 mmol/L (21-32); Chloride 102 mmol/L (98-108); Estimated Glomerular Filt Rate 58; Glucose 97 mg/dL (70-99); Osmolality Calculated 289 mOsm/kg (285-295); Potassium 4.6 mmol/L (3.5-5.1); Sodium 140 mmol/L (136-145)
== END 2023-12-05 11:47 | disposition home or self-care (01) ==
LOC: CHSLAB 11:48
PROVIDERS: PCP Internal Medicine; Visit Provider Nurse Practitioner Acute Care
DX: N17.9 Acute kidney failure, unspecified (principal)
CPT/HCPCS: 36415; 80048

== ENCOUNTER 2023-12-07 10:47 | Outpatient (CLI) | payer MEDICARE, SELFPAY ==
[2023-12-07 11:00] LABS: Basophils Absolute Auto 0.01 K/mm3 (0.00-0.10); Basophils Percent Auto 0.2 % (0.0-1.0); Eosinophils Absolute Auto 0.02 K/mm3 (0.02-0.50); Eosinophils Percent Auto 0.3 % (1.0-6.0); Hematocrit 35.8 % (37.0-46.0); Hemoglobin 11.5 g/dL (12.4-15.3); Immature Granulocyte Absolute 0.07 K/mm3 (0.00-0.00); Immature Granulocyte Percent A 1.1 % (0.0-0.0); Lymphocytes Absolute Auto 0.71 K/mm3 (1.10-4.50); Lymphocytes Percent Auto 11.5 % (18.0-42.0); Mean Corpuscular HGB Conc 32.1 g/dL (32-36); Mean Corpuscular Hemoglobin 23.8 pg (27.0-31.0); Mean Corpuscular Volume 74.1 fL (78.0-102.0); Mean Platelet Volume 9.8 fl (8.7-11.0); Monocytes Absolute Auto 0.76 K/mm3 (0.10-0.90); Monocytes Percent Auto 12.3 % (2.0-11.0); Neutrophils Absolute Auto 4.59 K/mm3 (1.70-7.20); Neutrophils Percent Auto 74.6 % (50.0-70.0); Platelet Count Result 263 K/mm3 (150-420); Red Blood Count 4.83 M/mm3 (4.70-6.10); Red Cell Distribution Width 17.2 % (11.6-14.4); White Blood Count 6.2 K/mm3 (4.8-10.8)
[2023-12-07 12:24] LABS: Alanine Aminotransferase 15 U/L (16-63); Albumin Level 2.8 g/dL (3.4-5.0); Alkaline Phosphatase 75 U/L (46-116); Anion Gap 10 mmol/L (4-12); Aspartate Amino Transferase 21 U/L (15-37); Bilirubin,Total 0.7 mg/dL (0.00-1.00); Blood Urea Nitrogen 11 mg/dL (7-18); CRP 3.9 mg/dL (0.0-0.9); Calcium 8.5 mg/dL (8.5-10.1); Carbon Dioxide 26 mmol/L (21-32); Chloride 102 mmol/L (98-108); Estimated Glomerular Filt Rate > 60; Glucose 129 mg/dL (70-99); Osmolality Calculated 287 mOsm/kg (285-295); Potassium 5.1 mmol/L (3.5-5.1); Sodium 138 mmol/L (136-145); Total Protein 6.5 g/dL (6.4-8.2)
== END 2023-12-07 10:48 | disposition home or self-care (01) ==
LOC: CHSLAB 10:49
PROVIDERS: PCP Internal Medicine; Visit Provider Internal Medicine
DX: A02.0 Salmonella enteritis (principal)
CPT/HCPCS: 36415; 80053; 85025; 86140

== ENCOUNTER 2024-07-23 14:16 | Outpatient (CLI) | payer MEDICARE, SELFPAY ==
--- NOTE | ~2024-07-23 | XR_ITS ---
Cervical Spine: AP, lateral, open-mouth views Clinical History: Pain Findings: There is straightening of the normal cervical lordosis. No fracture or subluxation seen. Th ere is moderate degenerative disc narrowing C5-C6 and C6-C7. There is moderate facet arthropathy thro ughout cervical spine. Pre-vertebral soft tissues are unremarkable. Impression: Moderate degenerative spondylosis overall, as detailed above. Reviewed, dictated and finalized at location M. Impression: Moderate degenerative spondylosis overall, as detailed above.
--- NOTE | ~2024-07-23 | XR_ITS ---
Lumbosacral Spine: AP and lateral views Clinical History: Pain Findings: The normal lordotic curve is maintained. The vertebral bodies and posterior elements are i ntact. The intervertebral disc spaces are mild degenerated. There is moderate to advanced facet arth ropathy throughout the lumbar spine, worst at L4-L5 and L5-S1. The sacroiliac joints are normally out lined. Extensive atherosclerotic calcification of the aorta present. Impression: [id number] degenerative spondylosis, as detailed above. Reviewed, dictated and finalized at location M. Impression: [id number] degenerative spondylosis, as detailed above.
--- OUTSIDE RECORDS SUMMARY | 2024-07-23 17:05 | XMS_ITS | Patient Health Record ---
Author Organization [facility] Address [address] [place], [place] [id number] Care Team Providers Care Ticket Puller Name Role Phone Jareth Retana Unavailable Unavailable DENA TOPETE Unavailable [phone] MARY STERN Unavailable [phone] Allergies Allergen (clinical drug ingredient) Drug/Non Drug Allergy documented on EMR Reaction Allergy Type Onset Date Status quinapril Accupril Unknown Drug Allergy Active Reason For Referral No Information Vital Signs Height-cm 177.8 cm 10/18/2023 Weight-kg 105.23 kg 10/18/2023 Height 70 in 10/18/2023 Weight 232 lbs 10/18/2023 BMI 33.28 kg/m2 10/18/2023 Encounters Encounter Location Date Provider Diagnosis [address] [id number] 10/18/2023 MARY STERN Tinea unguium B35.1 ; Pain in right toe(s) M79.674 ; Ingrowing nail L60.0 and Localized edema R60.0 [facility] [address] [place], [place] [id number] 10/16/2023 DENA TOPETE [facility] [address] [place], [place] [id number] 10/16/2023 DENA TOPETE [facility] [address] [place], [place] [id number] 10/16/2023 DENA TOPETE [facility] [address] [place], [place] [id number] 10/16/2023 DENA TOPETE Assessments Encounter Date Diagnosis (ICD Code) Assessment Notes Treatment Notes Treatment Clinical Notes Section Notes 10/18/2023 Tinea unguium (ICD-10 - B35.1) Aseptic debridement of elongated thickened nail to right foot third digit using sterile nippers, nails were debrided in length and thickness by 30% utilizing a nail nipper without incident. The patient was educated regarding all treatment options that include topical and oral antifungal treatments. I discussed the options of taking a sample of the nail to confirm diagnosis. Nail clippings were not sent for pathology analysis. The patient was educated why and how the fungal infection evolved in their feet and the patient was given information regarding how to prevent further infection. The patient was told to keep feet dry and change socks. The patient was told to be careful with old shoes and excessive sweating. The patient was educated regarding both OTC and prescription treatments. 10/18/2023 Pain in right toe(s) (ICD-10 - M79.674) 10/18/2023 Ingrowing nail (ICD-10 - L60.0) 10/18/2023 Localized edema (ICD-10 - R60.0) Plan Of Treatment No Information Insurance Providers Payer Name Payer Address Payer Phone Subscriber Number Group Number Insured Name Patient Relationship to Insured Coverage Start Date Coverage End Date [facility] [address] [place] [address] [id number] Nahum Saenz Self - patient is the insured Medical (General) History Medical History History ICD Code Leg/Feet cramps Arthritis skin cancer Sleep apnea Back Trouble Diabetic heart/disease/failure high blood pressure Surgical History Surgery Date(Month/Year) CABG skin graft Bone spur
--- OUTSIDE RECORDS SUMMARY | 2024-07-23 17:05 | XMS_ITS | Referral Summary ---
Author Organization [place] [address] Address [address] [facility] [address] [place] [address] Care Team Providers Care Traffic Attendant Name Role Phone Jareth Retana MD Primary Care Provider [phone] Encounters Date Type Department Care Team Description 06/17/2024 2:00 PM CDT Office Visit [facility] Cardiology [address] [facility] [address] [place] [address] Jes Medel NP Coronary artery disease involving [place] coronary artery of [place] heart without angina pectoris (Primary Dx); Hx of CABG; History of right-sided carotid endarterectomy; Orthostatic hypotension; Hypertension associated with diabetes (HCC) 05/01/2024 Telephone [facility] Cardiology [address] [place] [address] [address] [place] [address] Jes Medle NP from Last 3 Months Allergies Active Allergy Reactions Criticality Noted Date Comments Quinapril Rash Medium 10/10/2022 Medications sertraline (ZOLOFT) 100 mg tablet Take 1 tablet (100 mg total) by mouth daily 3 Active montelukast (SINGULAIR) 10 mg tablet Take 1 tablet (10 mg total) by mouth nightly 3 Active aspirin 81 mg enteric coated tablet Take 1 tablet (81 mg total) by mouth daily Active carvediloL (COREG) 25 mg tablet Take 1 tablet (25 mg total) by mouth 2 (two) times a day with meals Active fluticasone propionate (FLONASE) 50 mcg/actuation nasal spray Administer 1 spray into each nostril daily Active pantoprazole DR (PROTONIX) 40 mg EC tablet Take 1 tablet (40 mg total) by mouth daily Active potassium chloride ER 20 mEq CR tablet Take 1 tablet (20 mEq total) by mouth daily Active TRESIBA 100 unit/mL (3 mL) pen for injection INJECT 20 TO 40 UNITS SUBCUTANEOUSLY DAILY PER INSULIN PROTOCOL 3 Active Januvia 100 mg tablet 4 Active irbesartan (AVAPRO) 300 mg tablet TAKE 1 TABLET BY MOUTH DAILY 90 tablet 3 4 Active magnesium oxide (MAG-OX) 400 mg (241.3 mg elemental magnesium) tabletIndicati ons:hypomagnes emia Take 1 tablet (400 mg total) by mouth daily Active cetirizine (ZyrTEC) 10 mg tablet Take 1 tablet (10 mg total) by mouth daily Active clonazePAM (KlonoPIN) 0.5 mg tablet 4 Active atorvastatin (LIPITOR) 20 mg tablet Take 1 tablet (20 mg total) by mouth daily 90 tablet 3 5 Active levothyroxine (SYNTHROID) 50 mcg tablet Take 1 tablet (50 mcg total) by mouth daily 5 Active Active Problems Problem Noted Date Diagnosed Date Coronary artery disease invo lving [place] coronary artery of [place] heart without angina pectoris 10/10/2022 Hypertension associated with diabetes 10/10/2022 Assessment & Plan (10/30/2022 7:48 AM CDT): Stable continue Coreg 25 mg. Mixed diabetic hyperlipidemi a associated with type 2 diabetes mellitus 10/10/2022 Assessment & Plan (10/30/2022 7:48 AM CDT): Stable continue Lipitor 20 mg. Hx of CABG 10/10/2022 History of right-sided carotid endarterectomy Assessment & Plan (11/07/2023 12:54 PM CDT): Remains asymptomatic. Current duplex shows mild stenosis to the right and moderate to the left. Continue asa and statin therapy and continue annual surveillance with carotid duplex. Assessment & Plan (10/30/2022 7:48 AM CDT): History of right CEA done in [place]. Recommended continued risk factor modification with ASA statin therapy and good blood pressure control. Carotid duplex ordered for further evaluation. ZACHARY on CPAP 10/10/2022 Bilateral carotid bruits 10/10/2022 Orthostatic hypotension 10/10/2022 H/O syncope 10/10/2022 Social History Tobacco Use Types Packs/Day Years Used Date Smoking Tobacco: Former Cigarettes Q uit: 02/12/1971 Sex and Gender Information Value Date Recorded Sex Assigned at Not on file Legal Sex Male 1:20 PM CDT Gender Identity Male 12/17/2023 11:33 AM PIVOT MAKER Sexual Orientation Straight 12/17/2023 11 :33 AM PIVOT MAKER Last Filed Vital Signs Vital Sign Reading Time Taken Comments Blood Pressure 164/62 06/17/2024 2:04 PM CDT Pulse 73 06/17/2024 2:04 PM CDT Temperature - - Respiratory Rate - - Oxygen Saturation 96% 06/17/2024 2:04 PM CDT Inhaled Oxygen Concentration - - Weight 104.3 kg (230 lb) 06/17/2024 2:04 PM CDT Height 177.8 cm (5' 10) 06/17/2024 2:04 PM CDT Body Mass Index 33 06/17/2024 2:04 PM CDT Plan of Treatment Not on file Procedures Procedure Name Priority Date/Time Associated Diagnosis Comments LIPID PANEL Routine 04/07/2024 from Last 3 Months or Most Recently Relevant to Health Maintenance Results * Lipid panel (04/07/2024) SCRIBED Cholesterol, Total 131 30 - 199 mg/dL EXTERNAL LAB SCRIBED Triglycerides 85 <=149 mg/dL EXTERNAL LAB SCRIBED HDL 52 >=40 mg/dL EXTERNAL LAB SCRIBED LDL 62 <=129 mg/dL EXTERNAL LAB Scribed Non-HDL Cholesterol 79 NONE mg/dL EXTERNAL LAB SCRIBED Total Cholesterol/HDL Ratio 3 NONE EXTERNAL LAB Blood 04/07/2024 us Historical Provider LAB BLOOD ORDERABLES Rebeca davidson Result EXTERNAL LAB from Last 3 Months or Most Recently Relevant to Health Maintenance Insurance UHC MEDICARE ADVANTAGE [facility] MED[facility] Address: [facility] [address] [place] [address] [facility] Care Teams Traffic Attendant Relationship Specialty Start Date End Date Jareth Retana MD PCP - General Internal Medicine 07/19/22
--- OUTSIDE RECORDS SUMMARY | 2024-07-23 17:05 | XMS_ITS | Encounter Summary ---
Author Organization [facility] Healthcare Address [address] [place] [address] Care Team Providers Care General Car Yard Supervisor Name Role Phone Jareth Retana MD Primary Care Provider [phone] Encounter Details Date Type Department Care Team (Late st Contact Info) Description 12/01/2013 Orders Only [facility] [place] Management [address] [place] [address] Scanning, Provider Social History Tobacco Use Types Packs/Day Years Used Date Smoking Tobacco: Never Assessed Sex and Gender Information Value Date Recorded Sex Assigned at Not on file Legal Sex Male 1:20 PM CDT Gender Identity Male 12/17/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 Sexual Orientation Straight 12/17/2023 11 :33 AM DRAG CAR RACER documented as of this encounter Plan of Treatment Not on file documented as of this encounter Procedures Procedure Name Priority Date/Time Associated Diagnosis Comments CARDIOLOGY DOCUMENT SCAN 12/01/2013 documented in this encounter Results * Cardiology Document Scan (12/01/2013) Anatomical Region Laterality Modality Other us Provider Scanning CV CARDIAC SERVICES PROCEDURES Final Result documented in this encounter Visit Diagnoses Not on filedocumented in this encounter Care Teams General Car Yard Supervisor Relationship Specialty Start Date End Date Jareth Retana MD PCP - General Internal Medicine 07/19/22 documented as of this encounter
--- OUTSIDE RECORDS SUMMARY | 2024-07-23 17:05 | XMS_ITS | Data Portability ---
Author Organization [facility], [address] [facility] ([place] Address [address] [place] [address] Care Team Providers Care Manager Budget Name Role Phone ENDY HUNTER Primary Care Provider [phone] Assessment Encounter Date Assessment Date Assessment LastModified by Organization Details LastModified Time 03/11/2024 03/11/2024 Continue BiPAP 22/18 cm of water. He was encouraged to drink alcohol in moderation and not past the dinner hour. Do not drive if sleepy. If all is well, I will see him in a year for a download. [email or web address] Not available 03/11/2024 12:43:46 Plan of Treatment Reminders Order Date Submit Date Provider Last Modified By Organization Details Last Modified Time Details Appointments Establish ed Patient 15.EST 2025 11:30A M Dr. Yobany Coles Not available Not available Not available Lab None recorded. Referral None recorded. Procedures None recorded. Surgeries None recorded. Imaging None recorded. Medication Orders None recorded. Patient TargetsNo targets recorded. Patient Instructions Encounter Date Encounter Id Patient Instructions Last Modified By Organization Details Last Modified Time 03/11/2024 [id number] I spent time going over the results of the download. The last 3 months, BiPAP was used more than 4 hours on 91% of nights. AHI is 4. [email or web address] Not available 03/11/2024 12:43:40 Reason for Referral None Reported. Problems Name Problem SNOMED Code Status Onset Date Resolution Date Notes Provider Name and Address Organization Details Recorded Time Obstructive sleep apnea syndrome 08261893 Active 2024 Yobany Coles MD [address] [place] [address], [address], [facility] 5 12:13:38 Daytime somnolence 651101507089 Active 2024 Yobany Coles MD [address] , [place], [address], [facility] 5 12:13:56 Problem Notes None recorded. Procedures Surgical History Date Name Laterality Status Provider Name and Address Organization Details Recorded Time Colonoscopy with biopsy completed Not Available Health Note 03/04/2024 16:00:06 Cabg arterial single completed Not Available Health Note 03/04/2024 16:00:06 Imaging Results None recorded. Procedure Notes None recorded. Medical Equipment None Reported. Allergies Allergen ID Allergen Name Allergen Category Reaction Reaction Severity Criticality Documentation Date Start Date Code Code System Note Provider Name and Address Organization Details Recorded Time 320240 Accupril medicatio n rash Not available Not available 03/12/20232018 63927 RxNorm React ion: Rash; Not Available [facility] 21:57:32 579350 cat dander environme nt other Not available Not available 03/12/20232018 10658 UNK React ion: Unkno wn to Patie nt; Comme nt: Anima l dande r - Cats ; Not Available [facility] 21:57:33 281628 strawberr y allergeni c extract food,medi cation Not available Not available Not available 03/12/20232018 59387 4 RxNorm Comme nt: Straw berri es An notat ions: EIFERMIN S (ALMA) , ELOISE TY 2022 1:11P M No longe r has an aller gy to straw berri es; ; Not Available [facility] 21:57:33 Medications Name Sig Start Date Stop Date Status Note LastModified by Organization Details LastModified Time clonazepam 0.5 mg tablet Take 1 tablet twice a day by oral route. active Not Available Not Available No t Available sertraline 100 mg tablet Take 1 tablet every day by oral route at bedtime. active Not Available Not Available No t Available magnesium oxide 400 mg (241.3 mg magnesium) tablet TAKE 1 TABLET BY MOUTH IN THE EVENING active Not Available Not Available No t Available levothyrox ine 50 mcg tablet TAKE 1 TABLET BY MOUTH ONCE DAILY active Not Available Not Available No t Available pantoprazo le 40 mg tablet,del ayed release Take 1 tablet every day by oral route. active Not Available Not Available No t Available montelukas t 10 mg tablet Take 1 tablet every day by oral route at bedtime. active Not Available Not Available No t Available irbesartan 300 mg tablet Take 1 tablet every day by oral route at bedtime. active Not Available Not Available No t Available pen needle, diabetic 31 gauge x 5/16 USE WITH TRESIBA INJECTIO NS DAILY 03/12 completed using dexcom Not Available Not Available Not Available Januvia 100 mg tablet TAKE 1 TABLET BY MOUTH ONCE DAILY active Not Available Not Available No t Available carvedilol phosphate ER 20 mg capsule,ex t.release2 4hr multiphase Take 1 capsule twice a day by oral route. active Not Available Not Available No t Available Zyrtec 10 mg capsule Take 10 mg every day by oral route. active Not Available Not Available No t Available OneTouch Verio test strips USE 1 STRIP TO CHECK GLUCOSE THREE TIMES DAILY 03/12 completed using dexcom Not Available Not Available Not Available potassium chloride ER 20 mEq tablet,ext ended release Take 1 tablet every day by oral route. active Not Available Not Available No t Available Tresiba FlexTouch U-100 insulin 100 unit/mL (3 mL) subcutaneo us pen INJECT 40 UNITS SUBCUTAN EOUSLY ONCE DAILY IN THE EVENING active Not Available Not Available No t Available aspirin 81 mg capsule Take 1 capsule every day by oral route. active Not Available Not Available No t Available Vitals Date Recorded Body height Body mass index (BMI) Body weight Heart rate Oxygen saturation Oxygen saturation in Arterial blood by Pulse oximetry Systolic blood pressure Diastolic blood pressure Provider Name and Address Organization Details Last Updated DateTime 5 177.8 cm 33.3 kg/m2 223179. 43 g 72 /min 96 % 96 % 150 mm[Hg] 60 mm[Hg] Elma Felder [facility] 5 11:52:30 Social History Question Answer Notes LastModified by Organizat ion Details LastModified Time Tobacco Smoking Status Former Smoker Not Available Health Note 03/04/2024 16:00:06 Do You Have An Advance Directive? Yes [email or web address] Information not available 03/04/2024 What Is Your Level Of Caffeine Consumption? Moderate [email or web address] Information not available 03/04/2024 What Is Your Code Status? DNR [email or web address] Information not available 03/04/2024 How Many Times Per Week Do You Exercise? Less Than 1 Time Per Week [email or web address] Information not available 03/04/2024 Smokeless Tobacco? Former Smokeless Tobacco User [email or web address] Information not available 03/04/2024 How Many Packs Per Day (PPD)? 1 [email or web address] Information not available 03/11/2024 How Long Have You Smoked? 25 Years [email or web address] Information not available 03/11/2024 When Did You Quit Smoking? 1990 [email or web address] Information not available 03/11/2024 What Was The Date Of Your Most Recent Tobacco Screening? 03/11/2024 [email or web address] Information not available 03/04/2024 What Is Your Relationship Status? [email or web address] Information not available 03/04/2024 Sex: Unknown Functional Status Question Answer Note LastModified by Organizat ion Details LastModified Time How many times per week do you consume alcohol? 1-2 times per week [email or web address] Information not available 03/04/2024 Do you use any illicit or recreational drugs? No [email or web address] Information not available 03/04/2024 What is your level of alcohol consumption? Occasional [email or web address] Information not available 03/04/2024 Are you currently employed? 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 None [email or web address] Information not available 03/04/2024 Mental Status None recorded. Family History Relationship Description Onset Age of this Age Resolved Age Notes LastModified by Organization Details LastModified Time Sister Family history of malignant neoplasm [email or web address] Not available 2024 16:00:04 Father Diabetes mellitus [email or web address] Not available 2024 16:00:04 Father Heart disease [email or web address] Not available 2024 16:00:04 Brother Heart disease [email or web address] Not available 2024 16:00:04 Medical History Condition Response Diabetes Y Anxiety Disorder N Bleeding Disorder N Attention-deficit Hyperactivity Disorder N High Blood Pressure Y Arthritis Y Hyperlipidemia N Cancer N Thyroid Problems Y Stroke N Asthma N COPD N Depression N Anemia Y Seizures N Heart Disease Y Fibromyalgia N Osteoporosis N Kidney Disease N Past Encounters Encounter ID Performer Location Encounter Start Date Encounter Closed Date Diagnosis/Indication Diagnosis SNOMED-CT Code Diagnosis ICD10 Code Diagnosis Note [id number] Yobany Coles MD [facility] [address] [place] [address] 03/11/2024 10:56:27 03/11/2024 16:59:37 Obstructive sleep apnea syndrome 01102637 G47.33 Counseling 286111083 Z71 .89 Daytime somnolence [address] 88676 00 R40.0 Health Concerns Section Related Observation LastModified by Organization Detai ls LastModified Time None Recorded Concern Status LastModified by Organization Details LastModified Time None Recorded Advance Directives Directive Y: Payers Insurance Date Sequence Insurance Name Policy Number Policy Beckwith Covered Member ID Beckwith Member ID Guarantor Name 03/07/2024 1 [facility] (MEDICARE REPLACEMENT/ ADVANTAGE - PPO) [id number] Don M Letty [id number] Don M Letty 03/07/2024 2 [place] Don M Letty [id number] Don M Letty 03/11/2024 3 [employer] (MEDICARE REPLACEMENT/ ADVANTAGE - PPO) [id number] Don M Letty [id number] Don M Letty 03/11/2024 1 [employer] (MEDICARE REPLACEMENT/ ADVANTAGE - HMO) [id number] Don M Letty [id number] Don M Letty Notes Date Note Type Note Provider Name and Address Organization Details Recorded Time 03/11/2024 text/html CHIEF COMPLAINT:Obstruct leonora sleep apnea. HISTORY OF PRESENT ILLNESS:The patient returns today accompanied by his . Since I last saw him, he has been using and benefiting from his BiPAP. He wears a full face mask. He does not wake up snorting or gasping for breath at night. Quality of sleep seems good. He denied excessive daytime sleepiness. He does not fall asleep driving. He mentioned he self-monitors with his rufino at home and notices fluctuations in the AHI. For example, a few nights ago, the AHI was 2. A handful of nights before that, it was up to 12. The patient does acknowledge that he sometimes has alcohol close to bedtime. He might have a couple of beers. Some nights he might have a couple of shots of Genaro ochoa . Yobany Coles MD [address] [facility], [place], [address], [facility] 03/11/2024 13:07:28
--- OUTSIDE RECORDS SUMMARY | 2024-07-23 17:05 | XMS_ITS | Clinical Summary ---
Author Organization [facility] [address] Address [address] [place] [address] Care Team Providers Care Pediatric Geneticist Name Role Phone Jareth Retana MD Primary Care Provider [phone] Allergies Active Allergy Reactions Criticality Noted Date [...] Diagnosed Date Coronary artery disease invo lving [place] coronary artery of [place] heart without angina pectoris 10/10/2022 Hypertension associated [...] CDT): History of right CEA done in [place]. Recommended continued risk factor modification with ASA statin therapy and good blood pressure control. Carotid duplex ordered for further evaluation. ZACHARY on CPAP 10/10/2022 Bilateral carotid bruits 10/10/2022 Orthostatic hypotension 10/10/2022 H/O syncope 10/10/2022 Encounters Date Type Department Care Team Description 06/17/2024 2:00 PM CDT Office Visit [facility] Cardiology [address] [place] [address] Jes Medel NP Coronary artery disease involving [place] coronary artery of [place] heart without angina pectoris (Primary Dx); Hx of CABG; History of right-sided carotid endarterectomy; Orthostatic hypotension; Hypertension associated with diabetes (HCC) 05/01/2024 Telephone [facility] [address] [place] [address] Jes Medel NP from Last 3 Months Surgical History Surgery Date Site/Laterality Comments CORONARY ARTERY BYPASS GRAFT 04/25/2007 VASECTOMY CATARACT EXTRACTION Medical History Medical History Date Comments Hypertension Hyperlipidemia Diabetes mellitus (HCC) Sleep apnea Heart disease Thyroid disease Arthritis Family History Medical History Relation Name Comments Diabetes Father Don L Letty Heart disease Father Don L Letty Hypertension Father Don L Letty cardiac cath Mother Cancer Sister Jenn Relation Name Status Comments Father Don L Letty Mother Sister Jenn Alive Social History Tobacco Use Types Packs/Day Years Used Date Smoking Tobacco: Former Cigarettes Q uit: 02/12/1971 Sex and Gender Information Value Date Recorded Sex Assigned at Not on file Legal Sex Male 1:20 PM CDT Gender Identity Male 12/17/2023 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 Sexual Orientation Straight 12/17/2023 11 :33 AM HOSE TENDER Obstetrics History Last Filed Vital Signs Vital Sign Reading [...] 06/17/2024 2:04 PM CDT Plan of Treatment Health Maintenance Due Date Last Done Comments Albumin Creatinine Ratio, Urine 1949 Colon Cancer Screening-Colonoscopy 1949 Depression Screening 1949 Fall Risk Assessment 1949 Hemoglobin A1C 1949 Hepatitis C Screening 1950 eGFR 1949 Dilated Eye Exam 1949 Foot Exam 1949 DTaP/Tdap/Td Vaccine (1 - Tdap) 02/29/1960 Hepatitis B Screening 1967 Abdominal Aortic Aneurysm (A AA) Screen 2014 Well Visit 65+ 2014 Covid-19 Vaccine (7 - 2023-2 5 season) 2023 11/19/2021, 07/07/2021, 11/16/2020, Additional history exists Influenza Vaccine (Season Ended) 2024 11/16/2020, 11/22/2019, 12/14/2018, Additional history exists Lipid Panel 04/07/2025 04/07/2024, 08/13, 10/10/2022 Pneumococcal vaccine 65+ Completed 023, 12/01/2017, 04/29/2012 Zoster Vaccine Completed 08/30/2022, 04/12, 12/09/2011 Procedures Procedure Name Priority Date/Time Associated Diagnosis [...] to Health Maintenance Insurance UHC MEDICARE ADVANTAGE [facility] Care Teams Pediatric Geneticist Relationship Specialty Start Date End Date Jareth Retana MD PCP - General Internal Medicine 07/19/22
== END 2024-07-23 14:17 | disposition home or self-care (01) ==
PROVIDERS: PCP Internal Medicine; Visit Provider Internal Medicine
DX: I73.9 Peripheral vascular disease, unspecified (principal); M54.2 Cervicalgia; M54.50 Low back pain, unspecified; M43.06 Spondylolysis, lumbar region; M43.02 Spondylolysis, cervical region
CPT/HCPCS: 72040; 72100

== ENCOUNTER 2024-07-28 13:52 | Outpatient (CLI) | payer MEDICARE, SELFPAY ==
--- NOTE | ~2024-07-28 | US_ITS ---
ULTRASOUND ANKLE BRACHIAL INDEX Ordering provider: Jareth Retana MD History: . PAD . Comparison: None. FINDINGS: Right brachial systolic blood pressure: 189 mmHg Left brachial systolic blood pressure: 196 mmHg Right ankle systolic blood pressure: 161 mmHg Left ankle systolic blood pressure: 184 mmHg Right ankle/arm index (BARI): 0.82 Left ankle/arm index (BARI):0.94 Note regarding BARI: --Normal= 1.0 or slightly greater. --Claudication (moderate stenosis or occlusive state)= 0.6 to 0.9. --Rest pain (severe occlusive states)= 0.5 or less. IMPRESSION: Moderate stenosis on both sides. Reviewed, dictated and finalized at location A.
--- OUTSIDE RECORDS SUMMARY | 2024-07-28 14:58 | XMS_ITS | Patient Health Record ---
Author Organization [facility] Address [address] [place], [place] [address] Care Team Providers Care Supervisor Printing And Stamping Name Role Phone Jareth Retana Unavailable Unavailable DENA TOPETE Unavailable [phone] MARY STERN Unavailable [phone] Allergies Allergen (clinical drug ingredient) Drug/Non Drug Allergy documented on EMR Reaction Allergy Type Onset Date Status quinapril Accupril Unknown Drug Allergy Active Reason For Referral No Information Vital Signs Height-cm 177.8 cm 10/18/2023 Weight-kg 105.23 kg 10/18/2023 Height 70 in 10/18/2023 Weight 232 lbs 10/18/2023 BMI 33.28 kg/m2 10/18/2023 Encounters Encounter Location Date Provider Diagnosis [address] [id number] 10/18/2023 MARY STERN Tinea unguium B35.1 ; Pain in right toe(s) M79.674 ; Ingrowing nail L60.0 and Localized edema R60.0 [facility] [address] [place], [place] [id number] 10/16/2023 DENA TOPETE [facility] [address] [place], [place] [id number] 10/16/2023 DENA TOPETE [facility] [address] [place], [place] [id number] 10/16/2023 DENA TOPETE [facility] [address] [place], [place] [id number] 10/16/2023 DENA TOPETE Assessments Encounter Date Diagnosis [...] Insured Coverage Start Date Coverage End Date [facility] [address] [place] [address] [id number] Nahum Saenz Self - patient is the insured Medical (General) History Medical History History ICD Code Leg/Feet cramps Arthritis skin cancer Sleep apnea Back Trouble Diabetic heart/disease/failure high blood pressure Surgical History Surgery Date(Month/Year) CABG skin graft Bone spur
--- OUTSIDE RECORDS SUMMARY | 2024-07-28 14:58 | XMS_ITS | Data Portability ---
Author Organization [facility], [address] [facility] ([place]) Address [address] 4th [place] [address] Care Team Providers Care Data Processing Control Clerk Name Role Phone ENDY HUNTER Primary Care Provider [phone] Assessment Encounter Date Assessment Date Assessment LastModified by Organization Details LastModified Time 03/11/2024 03/11/2024 Continue BiPAP 22/18 cm of water. He was encouraged to drink alcohol in moderation and not past the dinner hour. Do not drive if sleepy. If all is well, I will see him in a year for a download. clb [email or web address] Not available 03/11/2024 12:43:46 Plan of Treatment [...] By Organization Details Last Modified Time 03/11/2024 [id number] I spent time going over the results of the download. The last 3 months, BiPAP was used more than 4 hours on 91% of nights. AHI is 4. [email or web address] Not available 03/11/2024 12:43:40 Reason for Referral None Reported. Problems Name Problem SNOMED Code Status Onset Date Resolution Date Notes Provider Name and Address Organization Details Recorded Time Obstructive sleep apnea syndrome 05222961 Active 2024 Yobany Coles MD [address] [place] [address], [phone], [facility] 5 12:13:38 Daytime somnolence 263215286170 Active 2024 Yobany Coles MD [address] , [place], [address], [facility] 5 12:13:56 Problem Notes None recorded. Procedures [...] Name and Address Organization Details Recorded Time 708220 Accupril medicatio n rash Not available Not available 03/12/20232018 27316 RxNorm React ion: Rash; Not Available [facility] 21:57:32 [id number] cat dander environme nt other Not available Not available 03/12/20232018 19645 UNK React ion: Unkno wn to Patie nt; Comme nt: Anima l dande r - Cats ; Not Available [facility] 21:57:33 274273 strawberr y allergeni c extract food,medi cation Not available Not available Not available 03/12/20232018 21529 4 RxNorm Comme nt: Straw berri es An notat ions: EIFERMIN S (ALMA) , ELOISE TY 2022 1:11P M No longe r has an aller gy to straw berri es; ; Not Available [facility] 21:57:33 Medications Name Sig Start Date Stop [...] Updated DateTime 5 177.8 cm 33.3 kg/m2 096110. 43 g 72 /min 96 % 96 % 150 mm[Hg] 60 mm[Hg] Elma Felder [facility] 5 11:52:30 Social History Question Answer Notes [...] How Many Packs Per Day (PPD)? 1 [email or web address] Information not available 03/11/2024 How Long Have You Smoked? 25 Years [email or web address] Information not available 03/11/2024 When Did You Quit Smoking? 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 Information not available 03/04/2024 What is [...] available 2024 16:00:04 Medical History Condition Response Attention-deficit Hyperactivity Disorder N High Blood Pressure Y Thyroid Problems Y COPD N Depression N Anemia Y Diabetes Y Anxiety Disorder N Bleeding Disorder N Arthritis Y Hyperlipidemia N Cancer N Stroke N Asthma N Seizures N Heart Disease Y Fibromyalgia N Osteoporosis N Kidney Disease N Past Encounters Encounter ID Performer Location Encounter Start Date Encounter Closed Date Diagnosis/Indication Diagnosis SNOMED-CT Code Diagnosis ICD10 Code Diagnosis Note [id number] Yobany Coles MD [facility] ([place]) [address] [place] [address] 03/11/2024 10:56:27 03/11/2024 16:59:37 Obstructive sleep apnea syndrome 88153541 G47.33 Counseling 072183867 Z71 .89 Daytime somnolence 77733 28709 00 R40.0 Health Concerns Section Related Observation LastModified by Organization Detai ls LastModified Time None Recorded Concern Status LastModified by Organization Details LastModified Time None Recorded Advance Directives Directive Y: Payers Insurance Date Sequence Insurance Name Policy Number Policy Beckwith Covered Member ID Beckwith Member ID Guarantor Name 03/07/2024 1 [facility] (MEDICARE REPLACEMENT/ ADVANTAGE - PPO) [id number] Don M Letty [id number] Don M Letty 03/07/2024 2 [place] Don M Letty [id number] Don M Letty 03/11/2024 3 [employer] (MEDICARE REPLACEMENT/ ADVANTAGE - PPO) [id number] Don M Letty [id number] Don M Letty 03/11/2024 1 [employer] (MEDICARE REPLACEMENT/ ADVANTAGE - HMO) [id number] Don M Letty [id number] Don M Letty Notes Date Note Type [...] ochoa . Yobany Coles MD [address] [facility], [place], [address], [facility] 03/11/2024 13:07:28
--- OUTSIDE RECORDS SUMMARY | 2024-07-28 14:58 | XMS_ITS | Encounter Summary ---
Author Organization [facility] Address [address] [place] [address] Care Team Providers Care Burlapper Name Role Phone Jareth Retana MD Primary Care Provider [phone] Encounter Details Date Type Department Care Team (Late st Contact Info) Description 12/01/2013 Orders Only [facility] [place] [place] Health Information Management [address] [place] [address] Scanning, Provider Social History Tobacco Use Types Packs/Day Years Used Date Smoking Tobacco: Never Assessed Sex and Gender Information Value Date Recorded Sex Assigned at Not on file Legal Sex Male 1:20 PM CDT Gender Identity Male 12/17/2023 11:33 AM NEONATAL SPECIALIST Sexual Orientation Straight 12/17/2023 11 :33 AM NEONATAL SPECIALIST documented as of this encounter Plan of [...] on filedocumented in this encounter Care Teams Burlapper Relationship Specialty Start Date End Date Jareth Retana MD PCP - General Internal Medicine 07/19/22 documented as of this encounter
--- OUTSIDE RECORDS SUMMARY | 2024-07-28 14:58 | XMS_ITS | Referral Summary ---
Author Organization [place] [address] Address [address] [facility] [address] [place] [address] Care Team Providers Care Health Information Clerk Name Role Phone Jareth Retana MD Primary Care Provider [phone] Encounters Date Type Department Care Team Description 06/17/2024 2:00 PM CDT Office Visit [facility] Cardiology [address] [facility] [address] [place] [address] Jes Medel NP Coronary artery disease involving [place] coronary artery of [place]ie heart without angina pectoris (Primary Dx); Hx of CABG; History of right-sided carotid endarterectomy; Orthostatic hypotension; Hypertension associated with diabetes (HCC) 05/01/2024 Telephone [facility] Cardiology [address] [place] [address] [address] [place] [address] Jes Medel NP from Last 3 Months Allergies Active [...] Diagnosed Date Coronary artery disease invo lving [place]ink[place] coronary artery of [place] heart without angina pectoris 10/10/2022 Hypertension associated [...] CDT): History of right CEA done in [place]. Recommended continued risk factor modification with ASA [...] CDT Gender Identity Male 12/17/2023 11:33 AM METHODS ENGINEER Sexual Orientation Straight 12/17/2023 11 :33 AM METHODS ENGINEER Last Filed Vital Signs Vital Sign Reading [...] to Health Maintenance Insurance UHC MEDICARE ADVANTAGE [facility] Address: [facility] [address] [place] [address] [facility] Care Teams Health Information Clerk Relationship Specialty Start Date End Date Jareth Retana MD PCP - General Internal Medicine 07/19/22
--- OUTSIDE RECORDS SUMMARY | 2024-07-28 14:58 | XMS_ITS | Clinical Summary ---
Author Organization [facility] [address] [place] [address] Care Team Providers Care Flare Worker Name Role Phone Jareth Retana MD Primary Care Provider Allergies Active Allergy Reactions Criticality Noted Date [...] Diagnosed Date Coronary artery disease invo lving [place] coronary artery of [place] heart without angina pectoris 10/10/2022 Hypertension associated [...] CDT): History of right CEA done in [place]. Recommended continued risk factor modification with ASA statin therapy and good blood pressure control. Carotid duplex ordered for further evaluation. ZACHARY on CPAP 10/10/2022 Bilateral carotid bruits 10/10/2022 Orthostatic hypotension 10/10/2022 H/O syncope 10/10/2022 Encounters Date Type Department Care Team Description 06/17/2024 2:00 PM CDT Office Visit [facility] Cardiology [address] [place] [address] Jes Medel NP Coronary artery disease involving [place] tribe coronary artery of um[place] tribe heart without angina pectoris (Primary Dx); Hx of CABG; History of right-sided carotid endarterectomy; Orthostatic hypotension; Hypertension associated with diabetes (HCC) 05/01/2024 Telephone [facility] Cardiology [address] [place] [address] Jes Medel NP from Last [...] CDT Gender Identity Male 12/17/2023 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
--- OUTSIDE RECORDS SUMMARY | 2024-07-28 14:58 | XMS_ITS | Clinical Summary ---
Author Organization [facility] Address [address] [place] [address] Care Team Providers Care Certified Nurse Midwife Name Role Phone Jareth Retana MD Primary Care Provider [phone] Hidden, Laurie A APPEALS RN Unavailable Unavailable Allergies Active Allergy Reactions Criticality Noted Date Comments Quinapril Hcl Unknown 03/05/2017 Medications Triamcinolone Acetonide (NASACORT AQ NA) 2 sprays by Nasal route daily. Active aspirin 81 MG tablet Take 1 tablet by mouth daily. Active vitamin D3, cholecalciferol, 1000 UNIT Tab tablet Take 1 tablet by mouth daily. 03/06/2016 Active clonazePAM 0.5 MG tablet Take 1 tablet by mouth 2 (two) times daily. 03/27/2012 Active clopidogrel 75 MG tablet Take 1 tablet by mouth daily. 12/28/2014 Active fluticasone propionate 50 MCG/ACT nasal spray 2 sprays by Nasal route daily. Active glipiZIDE 5 MG tablet Active loratadine 10 MG tablet Take 1 tablet by mouth. 03/06/2016 Active metFORMIN ER 500 MG 24 hr tablet 12/10/2014 Act leonora metoprolol succinate ER 50 MG 24 hr tablet Take 1 tablet by mouth. 03/27/2012 Active montelukast 10 MG tablet Take 1 tablet by mouth daily. 03/27/2012 Active Multiple Vitamins-Mineral s (MULTIVITAMIN ADULT) Tab Take 1 tablet by mouth daily. 03/06/2016 Active pantoprazole EC 40 MG tablet Take 1 tablet by mouth daily. Active potassium chloride CR 20 MEQ tablet Take 1 tablet by mouth daily. 12/17/2014 Active ranitidine 300 MG tablet Take 1 tablet by mouth. 03/27/2012 Active sertraline 50 MG tablet Take 1 tablet by mouth daily. 03/06/2016 Active valsartan-hydroc hlorothiazide 320-25 MG tablet Take 1 tablet by mouth daily. 03/06/2016 Active potassium chloride 20 MEQ packet 08/17/2017 Active glimepiride 1 MG tablet 03/07/2018 Active hydrochlorothiaz haylee 25 MG tablet 05/17/2018 Ac tive losartan 100 MG tablet 05/17/2018 Active metoclopramide 10 MG tablet 3 05/12/2018 Active sertraline 100 MG tablet 06/01/2018 Active Active Problems No known active problems Social History Tobacco Use Types Packs/Day Years Used Date Smoking Tobacco: Former Smokeless Tobacco: Never Alcohol Use Standard Drinks/Week Comments Yes 0 (1 standard drink = 0.6 oz pur e alcohol) AUDIT-C Answer Date Recorded Frequency of Alcohol Consumption 4 or more times a week 06/10/2018 Average Number of Drinks Not on file 019 Frequency of Binge Drinking Not on file 05/14 Sex and Gender Information Value Date Recorded Sex Assigned at Not on file 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 Gender Identity Not on file Sexual Orientation Not on file Last Filed Vital Signs Vital Sign Reading Time Taken Comments Blood Pressure 144/68 06/10/2018 9:20 AM CDT Pulse 73 06/10/2018 9:20 AM CDT Temperature - - Respiratory Rate - - Oxygen Saturation 95% 06/10/2018 9:20 AM CDT Inhaled Oxygen Concentration - - Weight 99.8 kg (220 lb) 06/10/2018 9:20 AM CDT Height 177.8 cm (5' 10) 06/10/2018 9:20 AM CDT Body Mass Index 31.57 06/10/2018 9:20 AM CDT Plan of Treatment Health Maintenance Due Date Last Done Comments Colorectal Cancer Screening Colonoscopy (10 Years) 1950 Hepatitis C 1967 DTaP, Tdap and Td Vaccines ( 1 - Tdap) 02/29/1968 Pneumococcal Vaccine: 50+ Ye ars (1 of 1 - PCV) 1999 Zoster Vaccines (1 of 2) 1999 Annual Medicare Wellness Visit 2014 COVID-19 Vaccine ( - 2023-2 5 season) 2023 RSV Immunization or 60+ Years (1 - 1-dose 75+ series) 02/29/2024 Meningococcal B Vaccine Aged Out No l onger eligible based on patient's age to complete this topic Meningococcal Vaccine Aged Out No asia yadiel eligible based on patient's age to complete this topic RSV Immunizations Under 20 Months Aged Out No longer eligible based on patient's age to complete this topic Insurance MEDICARE Care Teams Certified Nurse Midwife Relationship Specialty Start Date End Date Jareth Retana MD [address] [place] [address] PCP - General INTERNAL MEDICINE 06/10/18 Laurie Warner NP PCP - [facility] - [facility] Attributed Provider 11/12/16
== END 2024-07-28 13:53 | disposition home or self-care (01) ==
LOC: CHSIMG 13:53
PROVIDERS: PCP Internal Medicine; Visit Provider Internal Medicine
DX: I73.9 Peripheral vascular disease, unspecified (principal); M54.2 Cervicalgia; M54.50 Low back pain, unspecified
CPT/HCPCS: 93922

== ENCOUNTER 2024-07-30 13:01 | Outpatient (RCR) | payer MEDICARE, SELFPAY ==
--- NOTE | 2024-07-30 14:15 | OPREHPOC ---
Outpatient Therapy Plan of Care This is a Multidisciplinary Plan of Care that may contain components documented by all disciplines (PT, OT, and ST.) PT Problem 1 PT Problem #1 Knowledge Deficit PT Goal 1 Goal / Goal Update Independent and compliant with HEP. Target Visit 4 PT Problem 2 PT Problem #2 Pain PT Goal 1 Goal / Goal Update Pt to report no more than 2/10 pain when bending forward and lifting objects. Pt to report being able to walk around [employer] when going grocery shopping without onset of back pain or calf burning. Target Visit 12 PT Problem 3 PT Problem #3 Impaired Strength PT Goal 1 Goal / Goal Update Pt to improve gross LE strength to 5/5. Target Visit 12 PT Problem 4 PT Problem #4 Impaired Functional Mobility PT Goal 1 Goal / Goal Update Pt to be able ambulate for 6 minutes without low back pain. Target Visit 12
--- NOTE | 2024-07-30 14:15 | PTOPEVAL1 ---
Assessment and note entered by Adriane Patton, PT Evaluation Information Assessment Status Evaluation ICD-10 Condition Codes (PT) Cervicalgia M54.2,Pain in low back M54.50 Subjective Information Pt reports his low back has been causing him pain for a while, mainly on his R side. He reports his pain is sharp in nature and occurs when lifting and bending over to play with his dogs. He reports his pain goes away when his sits down and rests. Reports he got an x-ray of the low back which showed arthritis. Denies pain down the legs but does note burning in his calves and feet when he walks a long distance at the grocery store. Pt reports he got a doppler study done on his legs and has a follow up appointment with his doctor next , per BARI reports pt has moderate arterial stenosis in bilateral lower legs. Pt reports he also has a history of neck pain which he has been to PT for in the past, and he states that when his neck becomes painful he does his PT exercises to help manage it. States his primary concern is his low back. Reported Pain Level Pain Score 0,0: Self Report Assessment PT Clinical Summary Mr. Saenz is a 74 yo male who presents to skilled PT for low back pain. He presents with back pain that increases with bending forward and lifting, as well as with prolonged walking at the grocery store. He denies numbness or pain down the legs but does report a burning pain in the calf that increases with prolonged walking distance, which may be due to arterial stenosis as evidenced on BARI report from 07/29/24. He will benefit from skilled PT intervention to improve deficits to reduce pain and improve functional mobility and quality of life. Plan of Care Interventions Electrical Stimulation,Gait Training,Hot Pack/Cold Pack,Manual Therapy,Neuro Re-education,Patient/ Caregiver Education,Therapeutic Activities, Therapeutic Exercise,Self-Care/Home Management PT Services Indicated Yes Treatment Frequency and 2x/week for 12 visits Duration These treatments will address the objective and functional deficits as defined above. The patient will be advanced safely and appropriately in order for the patient to progress towards his/her prior level of function. Additional exercises will be introduced and as well as a comprehensive home exercise program upon discharge, if needed, ?to ensure carryover of functional gains achieved in the clinic. This treatment plan has been reviewed and agreement upon by the patient.
--- NOTE | 2024-08-27 09:59 | OPREHPOC ---
Outpatient Therapy Plan of Care This is a Multidisciplinary Plan of Care that may contain components documented by all disciplines (PT, OT, and ST.) PT Problem 1 PT Problem #1 Knowledge Deficit PT Goal 1 Goal / Goal Update Independent and compliant with HEP. Target Visit 4 Progress Met PT Problem 2 PT Problem #2 Pain PT Goal 1 Goal / Goal Update Pt to report no more than 2/10 pain when bending forward and lifting objects. -progress towards Pt to report being able to walk around [employer] when going grocery shopping without onset of back pain or calf burning. -not met with calf burning Target Visit 12 Progress Not Met PT Problem 3 PT Problem #3 Impaired Strength PT Goal 1 Goal / Goal Update Pt to improve gross LE strength to 5/5. -not assessed Target Visit 12 PT Problem 4 PT Problem #4 Impaired Functional Mobility PT Goal 1 Goal / Goal Update Pt to be able ambulate for 6 minutes without low back pain. -progressing towards Target Visit 12 Progress Not Met
--- NOTE | 2024-08-27 09:59 | PTOPPROG ---
Assessment and note entered by Sonali Griggs, PT Evaluation Information Assessment Status Progress ICD-10 Condition Codes (PT) Cervicalgia M54.2,Pain in low back M54.50 Subjective Information Nahum Saenz reports he is doing a little better overall regarding his back pain and quite a bit better regarding his neck pain. He notes his neck is just mildly painful and if he stretches it immediately goes away. He notes his back pain is the worst in the morning and when he bends over to don his pants. Assessment PT Clinical Summary Nahum Saenz has completed 10 skilled PT visits. He is reporting improved neck pain and slightly improved lower back pain. He still has difficulty donning pants and worse low back pain in the morning upon waking. He is demonstrating improved lumbar and cervical AROM. He continues to have tightness in bilateral hamstrings and decreased core strength. He is progressing towards goals and will continue to benefit from skilled PT to further address strength and proper body mechanics for filler leaf cutter long maintenance of low back pain. Plan of Care Interventions Neuro Re-education,Patient/Caregiver Education, Therapeutic Activities,Therapeutic Exercise PT Services Indicated Yes Treatment Frequency and Continue original POC for 2 additional visits Duration These treatments will address the objective and functional deficits as defined above. The patient will be advanced safely and appropriately in order for the patient to progress towards his/her prior level of function. Additional exercises will be introduced and as well as a comprehensive home exercise program upon discharge, if needed, ?to ensure carryover of functional gains achieved in the clinic. This treatment plan has been reviewed and agreement upon by the patient.
--- NOTE | 2024-09-03 10:15 | OPREHPOC ---
Outpatient Therapy Plan of Care This is a Multidisciplinary Plan of Care that may contain components documented by all disciplines (PT, OT, and ST.) PT Problem 1 PT Problem #1 Knowledge Deficit PT Goal 1 Goal / Goal Update Independent and compliant with HEP. Target Visit 4 Progress Met PT Problem 2 PT Problem #2 Pain PT Goal 1 Goal / Goal Update Pt to report no more than 2/10 pain when bending forward and lifting objects. -progress towards Pt to report being able to walk around [employer] when going grocery shopping without onset of back pain or calf burning. -not met with calf burning Target Visit 12 Progress Met PT Problem 3 PT Problem #3 Impaired Strength PT Goal 1 Goal / Goal Update Pt to improve gross LE strength to 5/5. Target Visit 12 Progress Not Met PT Problem 4 PT Problem #4 Impaired Functional Mobility PT Goal 1 Goal / Goal Update Pt to be able ambulate for 6 minutes without low back pain. met Target Visit 12 Progress Met
--- NOTE | 2024-09-03 10:15 | PTOPDC ---
Assessment and note entered by JT File, PT Evaluation Information Assessment Status Discharge ICD-10 Condition Codes (PT) Cervicalgia M54.2,Pain in low back M54.50 Subjective Information patient reports he is doing well today. he reports he has no pain. he reports he is compliant with his HEP. he reports the only pain he gets while walking anymore is in his calves. he reports he is ready to be done with therapy today. Reported Pain Level Pain Score 0: Self Report Assessment PT Clinical Summary mr. sandoval presents to skilled PT for his 12th skilled PT visit. he presents with improved ambulation and functional activity tolerance, and achievement of 75% of goals. he has no pain, and is able to walk without pain in the lower back. as of this date, he will DC skilled PT, and continue with HEP independent at home. Plan of Care PT Services Indicated Yes
== END 2024-09-03 20:00 | disposition home or self-care (01) ==
LOC: CHSPT 13:01
PROVIDERS: Visit Provider Internal Medicine
DX: M54.2 Cervicalgia (principal); M54.50 Low back pain, unspecified
CPT/HCPCS: 97110; 97112; 97161; 97530

== ENCOUNTER 2024-11-13 00:52 | Day surgery (SDC) | payer MEDICARE, SELFPAY ==
[2024-11-04 08:51] VITALS: BMI 33.7
[2024-11-13] VITALS (7 sets, daily range): BP systolic 146–220; BP diastolic 61–86; PULSE 66–77; RESP 18–20; TEMP 36.4; O2SAT 94–98; BMI 33.6
--- OUTSIDE RECORDS SUMMARY | 2024-11-13 00:54 | XMS_ITS | Clinical Summary ---
Author Organization 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 Gender Identity Not on file Sexual Orientation [...] 2) 1999 Annual Medicare Wellness Visit 2014 RSV Immunization or 60+ Years (1 - 1-dose 75+ series) 02/29/2024 COVID-19 Vaccine ( - 2023-2 5 season) 2024 Meningococcal B Vaccine Aged Out No l onger eligible based on patient's age to complete this topic Meningococcal Vaccine Aged Out No asia yadiel eligible based on patient's age to complete this topic RSV Immunizations Under 20 Months Aged Out No longer eligible based on patient's age to complete this topic Insurance MEDICARE Care Teams Facility Security Officer Relationship Specialty Start Date End Date Jareth Retana MD [address] [place] [address] PCP - General INTERNAL MEDICINE 06/10/18 Laurie Warner NP PCP - Med Group - [facility] Attributed Provider 11/12/16
--- OUTSIDE RECORDS SUMMARY | 2024-11-13 00:54 | XMS_ITS | Encounter Summary ---
Author Organization [facility] Address [address] [place] [address] Care Team Providers Care Clinical Application Specialist Name Role Phone Jareth Retana MD Primary Care Provider [phone] Encounter Details Date Type Department Care Team (Late st Contact Info) Description 12/01/2013 Orders Only [facility] Health Information Management [address] [place] [id number] Scanning, Provider Social History Tobacco Use Types Packs/Day Years Used Date Smoking Tobacco: Never Assessed Sex and Gender Information Value Date Recorded Sex Assigned at Not on file Legal Sex Male 1:20 PM CDT Gender Identity Male 12/17/2023 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
--- OUTSIDE RECORDS SUMMARY | 2024-11-13 00:54 | XMS_ITS | Patient Health Record ---
Author Organization [facility] Address [address] [place], [place] [id number] Care Team Providers Care Field Assistant Name Role Phone Jareth Retana Unavailable Unavailable Allergies Allergen (clinical drug ingredient) Drug/Non Drug Allergy documented on EMR Reaction Allergy Type Onset Date Status quinapril Accupril Unknown Drug Allergy Active Reason For Referral No Information Plan Of Treatment No Information Insurance Providers Payer Name Payer Address Payer Phone Subscriber Number Group Number Insured Name Patient Relationship to Insured Coverage Start Date Coverage End Date [facility] [address] [address] [place] [address] [id number] Nahum Saenz Self - patient is the insured Medical (General) History Medical History History ICD Code Leg/Feet cramps Arthritis skin cancer Sleep apnea Back Trouble Diabetic heart/disease/failure high blood pressure Surgical History Surgery Date(Month/Year) CABG skin graft Bone spur
--- OUTSIDE RECORDS SUMMARY | 2024-11-13 00:55 | XMS_ITS | Clinical Summary ---
Author Organization [facility] [address] Address [address] [place] [address] Care Team Providers Care Truck Assembler Name Role Phone Jareth Retana MD Primary Care Provider [phone] Allergies Active Allergy Reactions Criticality Noted Date [...] Active Problems Problem Noted Date Diagnosed Date PVD (peripheral vascular disease) 11/05/2024 Assessment & Plan (11/05/2024 10:13 AM CDT): Stable right lower extremity claudication. No life-limiting claudication rest pain or wounds. Continue ASA and statin therapy. Continue ambulation follow up in 1 year with repeat noninvasives Coronary artery disease invo lving [place] coronary artery of [place] heart without angina pectoris 10/10/2022 Hypertension associated with diabetes 10/10/2022 Assessment & Plan (11/05/2024 10:13 AM CDT): Stable continue Coreg Assessment & Plan (10/30/2022 7:48 AM CDT): Stable continue Coreg 25 mg. Mixed diabetic hyperlipidemi a associated with type 2 diabetes mellitus 10/10/2022 Assessment & Plan (10/30/2022 7:48 AM CDT): Stable continue Lipitor 20 mg. Hx of CABG 10/10/2022 History of right-sided carotid endarterectomy Assessment & Plan (11/05/2024 10:12 AM CDT): Continues to be asymptomatic. No significant left ICA stenosis. Right ICA with moderate 50-69% stenosis. Continue risk factor modification with ASA statin therapy and good blood pressure control. Follow up in 1 year with repeat carotid duplex Assessment & Plan (11/07/2023 12:54 PM CDT): Remains asymptomatic. Current duplex shows mild stenosis to the right and moderate to the left. Continue asa and statin therapy and continue annual surveillance with carotid duplex. Assessment & Plan (10/30/2022 7:48 AM CDT): History of right CEA done in [place]. Recommended continued risk factor modification with ASA statin therapy and good blood pressure control. Carotid duplex ordered for further evaluation. ZACHARY on CPAP 10/10/2022 Bilateral carotid bruits 10/10/2022 Orthostatic hypotension 10/10/2022 H/O syncope 10/10/2022 Encounters Date Type Department Care Team Description 11/10/2024 2:00 PM CDT Office Visit [facility] Cardiology [address] [facility] [address] [place] [address] Jes Medel NP Coronary artery disease involving [place] coronary artery of [place] heart without angina pectoris (Primary Dx); PVD (peripheral vascular disease); Hypertension associated with diabetes (HCC); Orthostatic hypotension 11/05/2024 9:45 AM CDT Office Visit [facility] Vascular at [address] [place] [address] Rashi Flowers MD History of right-sided carotid endarterectomy (Primary Dx); Hypertension associated with diabetes (HCC); PVD (peripheral vascular disease) 11/05/2024 Orders Only [facility] Vascular at [address] [place] [address] Rashi Flowers MD Bilateral carotid artery stenosis (Primary Dx); Other specified symptoms and signs involving the circulatory and respiratory systems; Atherosclerosis of [place] artery of both lower extremities with intermittent claudication 10/27/2024 10:00 AM CDT Ancillary Procedure [facility] Vascular and Vein Surgery at [address] [place] [address] Bilateral carotid artery stenosis from Last 3 Months Surgical History Surgery Date Site/Laterality Comments CORONARY ARTERY BYPASS GRAFT 04/25/2007 VASECTOMY CATARACT EXTRACTION Medical History Medical History Date Comments Hypertension Hyperlipidemia Diabetes mellitus Sleep apnea Heart disease Thyroid disease Arthritis [...] CDT Gender Identity Male 12/17/2023 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 Sexual Orientation Straight 12/17/2023 11 :33 AM CHINA PAINTER Obstetrics History Last Filed Vital Signs Vital Sign Reading Time Taken Comments Blood Pressure 162/56 11/10/2024 2:01 PM CDT Pulse 66 11/10/2024 2:01 PM CDT Temperature - - Respiratory Rate - - Oxygen Saturation 96% 11/10/2024 2:01 PM CDT Inhaled Oxygen Concentration - - Weight 105.7 kg (233 lb) 11/10/2024 2:01 PM CDT Height 177.8 cm (5' 10) 11/10/2024 2:01 PM CDT Body Mass Index 33.43 11/10/2024 2:01 PM CDT Plan of Treatment Health Maintenance [...] 2014 Well Visit 65+ 2014 Covid-19 Vaccine (2024-2 6 season) 2024 11/19/2021, 07/07/2021, 11/16/2020, Additional history exists Influenza Vaccine (#1) 2024 , 11/22/2019, 11/17/2019, Additional history exists Lipid Panel 04/07/2025 04/07/2024, 08/13, 10/10/2022 Pneumococcal vaccine 65+ Completed 023, 12/01/2017, 01/15/2017, Additional history exists Zoster Vaccine Completed 08/30/2022, 04/12, 12/09/2011 Procedures Procedure Name Priority Date/Time Associated Diagnosis Comments US CAROTIDS DUPLEX BILATERAL Schedule Routine, Read Routine (OP Routine) 10/27/2024 10:29 AM CDT Bilateral carotid artery stenosis LIPID PANEL Routine 04/07/2024 from Last 3 Months or Most Recently Relevant to Health Maintenance Results * US Carotids Duplex Bilateral (10/27/2024 10:29 AM CDT) Anatomical Region Laterality Modality Vascular Bilateral Ultrasound 10/27/2024 9:54 AM CDT Narrative 10/27/2024 1:25 PM CDT Vascular & Vein Surgery [address] [place] [id number] Carotid Duplex Ultrasound Report Patient Name: PRANEETH SAENZ : 1950 (74y 7m) Study Date: 10/27/2024 9:54:17 AM Sex: M Independent Crop Consultant: Location: [facility] Ref Provider: RASHI FLOWERS Quality: Adequate Order Provider: RASHI FLOWERS PROCEDURES: Carotid Report: Carotid duplex examination of the extracranial arteries was performed using 2D, color and spectral Doppler. INDICATIONS: S/P Rt CEA ~5 years ago @ [place]. HISTORY: HTN. HLD. DM. Former smoker. COMPARISONS: The previous exam was completed on 10/29/23: Rt <50, Lt 50-69, Rt vert highly resistive. Compared to prior there is an increase in velocity on the right, decrease in velocity on the left. MEASUREMENTS: Right Value Left Value Rt Subc PSV 219 cm/sec Lt Subc PSV 225 cm/sec RT Prox CCA PSV 150 cm/sec LT Prox CCA PSV 55 cm/sec RT Prox CCA EDV 8 cm/sec LT Prox CCA EDV 12 cm/sec RT Distal CCA PSV 71 cm/sec LT Distal CCA PSV 43 cm/sec RT Distal CCA EDV 12 cm/sec LT Distal CCA EDV 7 cm/sec Rt Bulb PSV 82 cm/sec Lt Bulb PSV 74 cm/sec Rt Bulb EDV 12 cm/sec Lt Bulb EDV 7 cm/sec RT Prox ICA PSV 95 cm/sec LT Prox ICA PSV 71 cm/sec RT Prox ICA EDV 11 cm/sec LT Prox ICA EDV 9 cm/sec RT Mid ICA PSV 129 cm/sec LT Mid ICA PSV 39 cm/sec RT Mid ICA EDV 32 cm/sec LT Mid ICA EDV 9 cm/sec RT Distal ICA PSV 108 cm/sec LT Distal ICA PSV 40 cm/sec RT Distal ICA EDV 26 cm/sec LT Distal ICA EDV 10 cm/sec RT ECA Prx PSV 210 cm/sec LT ECA Prx PSV 538 cm/sec RT ICA/CCA 1.82 ratio LT ICA/CCA 1.65 ratio Rt Vert Dst PSV 76 cm/sec Lt Vert Dst PSV 116 cm/sec FINDINGS: Rt Common Carotid Artery: The plaque in the right CCA appears to be heterogeneous. Rt Internal Carotid Artery: The plaque in the right internal carotid artery appears to be heterogeneous and smooth. Significant atherosclerotic changes of the right internal carotid artery with elevated peak systolic velocity and end diastolic velocity, as above. 50-69% stenosis. Rt External Carotid Artery: Patent right external carotid artery with evidence of atherosclerotic disease present. Rt Vertebral Artery: The right vertebral artery is patent with antegrade flow, highly resistive waveform. Subclavian artery proximal PSV 219 cm/s. Lt Common Carotid Artery: The plaque in the left CCA appears to be heterogeneous. Lt Internal Carotid Artery: The plaque in the left internal carotid artery appears to be heterogeneous and irregular. Atherosclerotic changes of the left internal carotid artery without hemodynamically significant Doppler findings. <50% stenosis. Lt External Carotid Artery: Patent left external carotid artery with evidence of atherosclerotic disease present. Lt Vertebral Artery: The left vertebral artery is patent with antegrade flow. Subclavian artery proximal PSV 225 cm/s. Comments: Left carotid bifurcation appears more narrow with cartwright scale and color Doppler imaging, but <50% by velocity. Brachial artery systolic blood pressure is 160 on the right, 176 on the left. CONCLUSIONS: 1. The right internal carotid artery disease is consistent with moderate 50-69% stenosis. 2. The left internal carotid artery disease is consistent with a less than 50% stenosis. 3. Normal, antegrade flow is noted in bilateral vertebral arteries. ATTESTATION: I have reviewed and interpreted the pertinent images and measurements of this study. I attest to the conclusions in the final report that is provided above. Electronically Signed By: Rashi Flowers MD 10/27/2024 12:48:28 PM CDT Procedure Note Rashi Flowers MD - 10/27/2024 Vascular & Vein Surgery [address] [place] [address] Carotid Duplex Ultrasound Report Patient Name: PRANEETH SAENZ : 1950 (74y 7m) Study Date: 10/27/2024 9:54:17 AM Sex: M Independent Crop Consultant: Location: [facility] Ref Provider: RASHI FLOWERS Quality: Adequate Order Provider: RASHI FLOWERS PROCEDURES: Carotid Report: Carotid duplex examination of the extracranial arterieswas performed using 2D, color and spectral Doppler. INDICATIONS: S/P Rt CEA ~5 years ago @ [place]. HISTORY: HTN. HLD. DM. Former smoker. COMPARISONS: The previous exam was completed on 10/29/23: Rt <50, Lt 50-69, Rt verthighly resistive. Compared to prior there is an increase in velocity on the right, decreasein velocity on the left. MEASUREMENTS: Right Value Left Value Rt Subc PSV 219 cm/sec Lt Subc PSV 225 cm/sec RT Prox CCA PSV 150 cm/sec LT Prox CCA PSV 55 cm/sec RT Prox CCA EDV 8 cm/sec LT Prox CCA EDV 12 cm/sec RT Distal CCA PSV 71 cm/sec LT Distal CCA PSV 43 cm/sec RT Distal CCA EDV 12 cm/sec LT Distal CCA EDV 7 cm/sec Rt Bulb PSV 82 cm/sec Lt Bulb PSV 74 cm/sec Rt Bulb EDV 12 cm/sec Lt Bulb EDV 7 cm/sec RT Prox ICA PSV 95 cm/sec LT Prox ICA PSV 71 cm/sec RT Prox ICA EDV 11 cm/sec LT Prox ICA EDV 9 cm/sec RT Mid ICA PSV 129 cm/sec LT Mid ICA PSV 39 cm/sec RT Mid ICA EDV 32 cm/sec LT Mid ICA EDV 9 cm/sec RT Distal ICA PSV 108 cm/sec LT Distal ICA PSV 40 cm/sec RT Distal ICA EDV 26 cm/sec LT Distal ICA EDV 10 cm/sec RT ECA Prx PSV 210 cm/sec LT ECA Prx PSV 538 cm/sec RT ICA/CCA 1.82 ratio LT ICA/CCA 1.65 ratio Rt Vert Dst PSV 76 cm/sec Lt Vert Dst PSV 116 cm/sec FINDINGS: Rt Common Carotid Artery: The plaque in the right CCA appears to beheterogeneous. Rt Internal Carotid Artery: The plaque in the right internal carotidartery appears to be heterogeneous and smooth. Significant atherosclerotic changes of the rightinternal carotid artery with elevated peak systolic velocity and end diastolicvelocity, as above. 50-69% stenosis. Rt External Carotid Artery: Patent right external carotid artery withevidence of atherosclerotic disease present. Rt Vertebral Artery: The right vertebral artery is patent with antegradeflow, highly resistive waveform. Subclavian artery proximal PSV 219 cm/s. Lt Common Carotid Artery: The plaque in the left CCA appears to beheterogeneous. Lt Internal Carotid Artery: The plaque in the left internal carotid arteryappears to be heterogeneous and irregular. Atherosclerotic changes of the left internalcarotid artery without hemodynamically significant Doppler findings. <50% stenosis. Lt External Carotid Artery: Patent left external carotid artery withevidence of atherosclerotic disease present. Lt Vertebral Artery: The left vertebral artery is patent with antegradeflow. Subclavian artery proximal PSV 225 cm/s. Comments: Left carotid bifurcation appears more narrow with cartwright scale andcolor Doppler imaging, but <50% by velocity. Brachial artery systolic blood pressure is160 on the right, 176 on the left. CONCLUSIONS: 1. The right internal carotid artery disease is consistent with [id number]% stenosis. 2. The left internal carotid artery disease is consistent with a less than50% stenosis. 3. Normal, antegrade flow is noted in bilateral vertebral arteries. ATTESTATION: I have reviewed and interpreted the pertinent images and measurements ofthis study. I attest to the conclusions in the final report that is provided above. Electronically Signed By: Rashi Flowers MD 10/27/2024 12:48:28 PM CDT us Rashi Flowers MD [facility] PROCEDURES Final Result * Lipid panel (04/07/2024) SCRIBED Cholesterol, Total 131 30 - 199 mg/dL EXTERNAL LAB SCRIBED Triglycerides 85 <=149 mg/dL EXTERNAL LAB SCRIBED HDL 52 >=40 mg/dL EXTERNAL LAB SCRIBED LDL 62 <=129 mg/dL EXTERNAL LAB Scribed Non-HDL Cholesterol 79 NONE mg/dL EXTERNAL LAB SCRIBED Total Cholesterol/HDL Ratio 3 NONE EXTERNAL LAB Blood 04/07/2024 us Historical Provider LAB BLOOD ORDERABLES Rebeca stuart Result EXTERNAL LAB from Last 3 Months or Most Recently Relevant to Health Maintenance Insurance [employer] MEDICARE ADVANTAGE [facility] Care Teams Truck Assembler Relationship Specialty Start Date End Date Jareth Retana MD PCP - General Internal Medicine 07/19/22
--- NOTE | 2024-11-13 07:15 | WPDANESEPPF ---
Anes - Initial Pre Proc Eval Procedure: Operation Date: 11/13/24 10:00 Proposed Procedures p Screening Colonoscopy - Kofi Tyler MD Date/Time: 11/13/24 07:15 Surgeon: Kofi Tyler MD Pre Op Diagnosis: Personal history of colon polyps, unspecified Patient Data Age: 74 Gender: M Height: 1.75 m Weight: 103.5 kg Allergies Allergy/AdvReac Type Severity Reaction Status Date / Time quinapril (From Accupril) Allergy Rash Verified 11/13/24 08:57 Home Medications ?Medication ?Instructions ?Recorded ?Confirmed ?Type aspirin 81 mg tablet,delayed 81 mg PO DAILY 02/02/20 11/13/24 History release (Adult Aspirin Regimen) carvedilol 25 mg tablet 25 mg PO Q12H 02/02/20 11/13/24 History irbesartan 300 mg tablet 300 mg PO DAILY 02/02/20 11/13/24 History montelukast 10 mg tablet 10 mg PO DAILY 02/02/20 11/13/24 History pantoprazole 40 mg tablet,delayed 40 mg PO QAM 02/02/20 11/13/24 History release potassium chloride 20 mEq 20 meq PO DAILY 05/16/21 11/13/24 History tablet,extended release(part/cryst) Held on 12/02/23. Instructions: Resume on 12/10/23. please hold until follow-up with your doctor sertraline 100 mg tablet (Zoloft) 100 mg PO DAILY 05/16/21 11/13/24 History cetirizine 10 mg tablet (Zyrtec) 10 mg PO DAILY 12/01/23 11/13/24 History insulin degludec 100 unit/mL (3 45 unit subcut DAILY@1700 12/01/23 11/13/24 History mL) subcutaneous pen (Tresiba FlexTouch U-100 insulin) sitagliptin phosphate 100 mg 100 mg PO DAILY 12/01/23 11/13/24 History tablet (Januvia) loperamide 2 mg capsule 2 mg PO PRN PRN Diarrhea #30 caps 12/02/23 11/04/24 Rx clonazepam 0.5 mg tablet (Klonopin) 0.5 mg PO Q12H 11/04/24 11/13/24 History levothyroxine 50 mcg tablet 50 mcg PO DAILY 11/04/24 11/13/24 History Patient hx anesthesia problems: none Family hx anesthesia problems: none Results Review: All pre-operative results and documents have been reviewed as part of the pre-operative evaluation. [facility] Past Medical History Medical History Adenomatous colon polyp Carotid artery disease Diabetes Injury of elbow, left Iron deficiency anemia Sleep apnea Tongue cancer Surgical History Surgical History (Updated 12/02/23 @ 10:22 by Tricia Abreu, DIRECTOR OF AUTOMATION) H/O carotid endarterectomy Hx of CABG Family History Family History Sibling Family history of obesity Family history of diabetes mellitus in first degree relative Family history of heart disease in male family member before age 55 Father Hypertension Family history of diabetes mellitus in first degree relative Family history of coronary artery disease Acute myocardial infarction Social History Social History Smoking packs per day: 1.5 Smoking cigarettes per day: 30.0 Years smoked: 30 Smoking pack-years: 45.00 Smoking status: Former smoker Tobacco type: cigarettes Second hand tobacco smoke exposure: No Alcohol intake: current Drinks per week: 21 Substance use: never Substance use type: does not use Do You Feel Safe in your Home?: Yes Lack of Transportation: No Lack of Food: Never True Current Housing: I Have Housing Concerned About Future Housing: No Difficulty Paying Gas/Electric Bills: No Difficulty Paying for Meds: No Currently Unemployed: No Education: Trade/Vocational Certificate Difficulty w/ Childcare or Family Care: No Living arrangements: with family Spiritual care concerns: No Anes - Eval Final PreProcedure Day of Procedure 11/13/24 07:15 Patient weight: obese Heart: regular rate and rhythm Lungs: clear to auscultation Airway: Mallampati scale class II Neurological: alert and oriented Last oral intake: >/= 8 hours ASA classification: III Emergent: no Anesthetic plan: proceed Anesthesia type and monitoring: general GIVS and standard monitoring Results Review: All pre-operative results and documents have been reviewed as part of the pre-operative evaluation. Informed Consent: The patient's anesthetic plan and its attendant risks and benefits were discussed with the patient/family/POA. Questions were solicited and answers provided to the satisfaction of the patient/family/POA.
[2024-11-13] MEDS: LACTATED RINGERS 1,000 ML 150 ML IV CONT (09:06)
--- NOTE | 2024-11-13 09:19 | SUR.PREOP ---
0915-Dr. Martinez at bedside. BP 200/78. Orders received for 10mg Hydralazine IVP.
--- NOTE | 2024-11-13 09:35 | PM.HPGS ---
History of Present Illness History of Present Illness Consent: Risks, benefits, and alternatives have been discussed and questions answered. Patient agrees to proceed with procedure. Chief complaint: Personal history of colon polyps, unspecified Narrative: Nahum Saenz is a 74 year old male with colon polyps in 2022 Review of Systems Review of Systems: All systems reviewed & are unremarkable except as noted in HPI and below PMFSH Past Medical History Medical History Adenomatous colon polyp Carotid artery disease Diabetes Injury of elbow, left Iron deficiency anemia Sleep apnea Tongue cancer Surgical History Surgical History (Updated 12/02/23 @ 10:22 by Tricia Abreu, DATA SOFTWARE ENGINEER) H/O carotid endarterectomy Hx of CABG Family History Family History Sibling Family history of obesity Family history of diabetes mellitus in first degree relative Family history of heart disease in male family member before age 55 Father Hypertension Family history of diabetes mellitus in first degree relative Family history of coronary artery disease Acute myocardial infarction Social History Social History Smoking packs per day: 1.5 Smoking cigarettes per day: 30.0 Years smoked: 30 Smoking pack-years: 45.00 Smoking status: Former smoker Tobacco type: cigarettes Second hand tobacco smoke exposure: No Alcohol intake: current Drinks per week: 21 Substance use: never Substance use type: does not use Do You Feel Safe in your Home?: Yes Lack of Transportation: No Lack of Food: Never True Current Housing: I Have Housing Concerned About Future Housing: No Difficulty Paying Gas/Electric Bills: No Difficulty Paying for Meds: No Currently Unemployed: No Education: Trade/Vocational Certificate Difficulty w/ Childcare or Family Care: No Living arrangements: with family Spiritual care concerns: No Meds Home Medications and Allergies Home Medications ?Medication ?Instructions ?Recorded ?Confirmed ?Type aspirin 81 mg tablet,delayed 81 mg PO DAILY 02/02/20 11/13/24 History release (Adult Aspirin Regimen) carvedilol 25 mg tablet 25 mg PO Q12H 02/02/20 11/13/24 History irbesartan 300 mg tablet 300 mg PO DAILY 02/02/20 11/13/24 History montelukast 10 mg tablet 10 mg PO DAILY 02/02/20 11/13/24 History pantoprazole 40 mg tablet,delayed 40 mg PO QAM 02/02/20 11/13/24 History release potassium chloride 20 mEq 20 meq PO DAILY 05/16/21 11/13/24 History tablet,extended release(part/cryst) Held on 12/02/23. Instructions: Resume on 12/10/23. please hold until follow-up with your doctor sertraline 100 mg tablet (Zoloft) 100 mg PO DAILY 05/16/21 11/13/24 History cetirizine 10 mg tablet (Zyrtec) 10 mg PO DAILY 12/01/23 11/13/24 History insulin degludec 100 unit/mL (3 45 unit subcut DAILY@1700 12/01/23 11/13/24 History mL) subcutaneous pen (Tresiba FlexTouch U-100 insulin) sitagliptin phosphate 100 mg 100 mg PO DAILY 12/01/23 11/13/24 History tablet (Januvia) loperamide 2 mg capsule 2 mg PO PRN PRN Diarrhea #30 caps 12/02/23 11/04/24 Rx clonazepam 0.5 mg tablet (Klonopin) 0.5 mg PO Q12H 11/04/24 11/13/24 History levothyroxine 50 mcg tablet 50 mcg PO DAILY 11/04/24 11/13/24 History Allergies Allergy/AdvReac Type Severity Reaction Status Date / Time quinapril (From Accupril) Allergy Rash Verified 11/13/24 08:57 Vital Signs Vital Signs - 24 hr 11/13/24 08:38 11/13/24 09:15 11/13/24 09:24 Temperature 97.6 F Pulse Rate 77 Respiratory Rate 20 Blood Pressure 220/86 H 200/78 H 190/69 H Pulse Oximetry 96 Oxygen Delivery Room Air 11/13/24 09:32 Temperature Pulse Rate Respiratory Rate Blood Pressure 181/61 H Pulse Oximetry Oxygen Delivery Exam Const: General: comfortable and no acute distress Eyes: General: appearance normal, both eyes and all related structures Resp: Auscultation: clear to auscultation bilaterally Cardio: Rate: regular rate GI: Inspection: non-distended GI Palp: Yes Soft to palpation Skin: General skin exam: normal color Extrem: General: normal to inspection Psych: Mental Status: mental status grossly normal Assessment and Plan Assessment and plan (1) Adenomatous colon polyp: Code(s): D12.6 - Benign neoplasm of colon, unspecified Status: Acute Assessment and Plan: colonoscopy
--- NOTE | 2024-11-13 09:54 | S_PTH ---
PATIENT: Nahum Saenz LOC: [facility]#:[id number] AGE/SX: 74/M ROOM: RE11/13/[address]: Kofi Tyler MD : 1950 BED: DIS: 11/13/2024 SPEC #: [id number] RECD: 11/13/24 11:35 STATUS: THELMA RE #: [id number] CLIFF: 11/13/24 09:[address]: Kofi Tyler DEPT: [facility] Surgical RECD BY: Charu Baker MLT, ([facility]) ENTERED: 11/13/24 11:37 SP TYPE: Surgical OTHR DR: Jareth Retana MD Tissues: A - Colon Polypectomy B - Colon Polypectomy C - Colon Polypectomy Procedures: Hematoxylin and Eosin Stain Gross and Microscopic Level 4
== END 2024-11-13 10:25 | disposition home or self-care (01) ==
PROVIDERS: PCP Internal Medicine; Referring Provider Internal Medicine Gastroenterology; Visit Provider Internal Medicine Gastroenterology
PROC: 0DJD8ZZ Inspection of Lower Intestinal Tract, Via Natural or Artificial Opening Endoscopic (ICD-10-PCS; CPT 45378; principal; 2024-11-13 10:00)
DX: Z12.11 Encounter for screening for malignant neoplasm of colon (principal); D12.2 Benign neoplasm of ascending colon; D12.4 Benign neoplasm of descending colon; D12.3 Benign neoplasm of transverse colon; K64.8 Other hemorrhoids; E11.9 Type 2 diabetes mellitus without complications; Z87.891 Personal history of nicotine dependence; E66.9 Obesity, unspecified; Z68.33 Body mass index [BMI] 33.0-33.9, adult
CPT/HCPCS: 45380; 45385; 82948; 88305; J0360; J2704; J7120